=== PATIENT | male | born 1940 | race Caucasian/White ===

== ENCOUNTER 2016-12-27 13:31 | Emergency (ER) | payer OTHER ==
[~2016-12-27] VITALS: Ht 177.8 cm; Wt 99.0 kg
[2016-12-27 13:31] VITALS: Ht 177.8 cm; Wt 99.0 kg
[~2016-12-27 13:31] MED LIST: AMR2 PO; DTR5 PO; GLC500 PO; KETO200T PO; LISI-725 PO; LSX20 PO; MULT-506 PO; OMEG10007 PO; PRESERVISION PO; SIMV40TA2 PO
[2016-12-27] MEDS ORDERED: DEXAMETHASONE SOD INJ 4 MG/ML VIAL IV STA (13:41)
[2016-12-27] MEDS ORDERED: FAMOTIDINE 20MG/102 ML D5W IV STA (13:41)
[2016-12-27 13:54] LABS: BASO % 0.1 %; BASO ABS # 0.01 K/uL (0-0.2); COMPLETE YES; EOS % 1.2 %; HEMATOCRIT 48.8 % (42-52); IG% 0.5 %; LYMPH % 47.5 %; LYMPH ABS # 4.03 K/uL (1.2-3.4); MEAN CORPUSCULAR HEMOGLOBIN 28.6 pg (25-34); MEAN PLATELET VOLUME 10.9 fL (7.4-10.4); MONO % 3.3 %; NEUT % 47.4 %; PLATELET COUNT 228 K/uL (130-400); RED BLOOD COUNT 5.81 M/uL (4.7-6.1); WHITE BLOOD COUNT 8.49 K/uL (4.8-10.8)
[2016-12-27] MEDS ORDERED: MULT-190 PO (14:00)
[2016-12-27] MEDS ORDERED: METF-384 PO (14:00)
[2016-12-27] MEDS ORDERED: PRVC/40 PO (14:00)
[2016-12-27] MEDS ORDERED: GLIM4TAB2 PO (14:00)
[2016-12-27] MEDS ORDERED: DTR/5 PO (14:00)
[2016-12-27] MEDS ORDERED: FRS/40 PO (14:00)
[2016-12-27 14:08] LABS: BUN/CREATININE RATIO 16.7 (10-20); CALCIUM 9.4 mg/dl (8.5-10.1); CREATININE 1.5 mg/dl (0.60-1.40); POTASSIUM 3.4 mmol/L (3.5-5.1)
--- NOTE | 2016-12-27 14:12 | DIAGNOSTIC IMAGING REPORT ---
CHEST ONE VIEW PORTABLE CLINICAL HISTORY: Allergic reaction. Syncope. COMPARISON STUDY: Chest radiograph October 17, 2007. FINDINGS: Lung volumes are normal. There is no consolidation to suggest pneumonia and there is no evidence of pulmonary edema. Cardiomediastinal silhouette is stable. The appearance of the chest is unchanged. IMPRESSION: No acute cardiopulmonary findings. Electronically signed by: Shen Gustafson M.D. 12/27/2016 2:10 PM Dictated Date/Time: 12/27/2016 2:09 PM
[2016-12-27 15:24] LABS: URINE APPEARANCE CLEAR (CLEAR); URINE BILIRUBIN NEG (NEG); URINE COLOR YELLOW; URINE EPITHELIAL CELL AUTO >30 /lpf (0-5); URINE NITRITE NEG (NEG); URINE PH 5.5 (4.5-7.5); URINE SPECIFIC GRAVITY 1.014 (1.000-1.030); UROBILINOGEN NEG (NEG)
[2016-12-27 15:35] LABS: MANUAL MICROSCOPIC REQUIRED? NO; REVIEW REQ? YES
[2016-12-27 15:55] VITALS: O2SAT 95
[2016-12-27] MEDS ORDERED: PRED20TA PO (16:39)
--- NOTE | 2016-12-27 16:39 | EMERGENCY ROOM VISIT NOTE ---
History Report prepared by Richa: Raeann Watkins Under the Supervision of: Dr. Tonny Marin M.D. First contact with patient: 13:34 Stated Complaint: ALLERGIC REACTION/SYNCOPE History of Present Illness The patient is a 76 year old male who presents to the Emergency Room with complaints of a syncopal episode that occurred this afternoon. Per patient's family, the patient developed sweatiness and itchiness in his hands this afternoon. The itchiness spread through his entire body. He took 25 mg PO when his symptoms began. The patient has had similar allergic reactions in the past few years. He states that it typically happens after a large meal, although the patient and his family are unsure what exactly causes the reaction. The patient is prescribed an EpiPen for these reactions and has used it in the past without any relief, so he does not use it anymore. The patient reports that he ate 2 eggs, 2 pieces of toast, and a cup of tea prior to the onset of his symptoms. He has eaten these items without problems in the past. After the reactions, he typically gets diarrhea. Today, the patient was on his way to the bathroom to have a bowel movement and he passed out. Upon EMS arrival the patient was hypotensive. He was given another 25 mg Benadryl and 500 cc fluid en route. Currently, the patient is feeling much better. He is no longer itchy. He has never had allergy testing. Pt denies headache, fevers, chills, diaphoresis, visual changes, neck pain, chest pain, breathing difficulties, nausea, vomiting , abdominal pain, back pain, melena, hematochezia, urinary symptoms, numbness, weakness, lymphadenopathy, or other complaints. Source of History: patient Onset: this morning Position: other (global) Quality: other (syncope) Timing: other (episode) Note: Other symptoms: itchiness Review of Systems See HPI for pertinent positives and negatives. A total of ten systems were reviewed and were otherwise negative. Past Medical & Surgical Medical Problems: (1) HTN (hypertension) (2) Prostate cancer Family History No pertinent family history stated. Social History Marital Status: Housing Status: lives with significant other Occupation Status: retired Current/Historical Medications Scheduled Fish Oil ([place]-3), 1 CAP PO DAILY Furosemide (Lasix), 40 MG PO DAILY Glimepiride (Glimepiride), 1 TAB PO DAILY Lisinopril (Zestril), 20 MG PO DAILY Metformin Hcl (Glucophage), 1,000 MG PO BID Multivitamin (Multivitamin), 1 TAB PO DAILY Ocuvite Preservision (Ocuvite Preservision), 1 TAB PO DAILY Oxybutynin Chloride (Ditropan), 5 MG PO Q2D Pravastatin Sod (Pravastatin Sodium), 1 TAB PO DAILY Prednisone (Prednisone), 20 MG PO DAILY Allergies Coded Allergies: Sulfa Drugs (Verified Allergy, Severe, HIVES, 12/27/16) Povidone Iodine (Unverified Allergy, Mild, burning sensation, 12/27/16) Physical Exam Vital Signs Date Time Temp Pulse Resp B/P Pulse Ox O2 Delivery O2 Flow Rate FiO2 12/27/16 17:45 36.5 82 18 135/67 96 12/27/16 17:36 82 18 135/67 96 Room Air 12/27/16 17:31 67 22 118/58 96 Room Air 12/27/16 16:30 95 111/56 95 Room Air 12/27/16 16:06 65 19 93 12/27/16 16:01 73 19 92 Room Air 12/27/16 16:00 129/61 12/27/16 15:55 95 Room Air 12/27/16 15:31 75 19 93 12/27/16 15:30 113/60 12/27/16 15:01 80 17 95 12/27/16 15:00 109/54 12/27/16 14:45 36.5 83 18 115/52 95 Room Air 12/27/16 14:31 85 19 95 12/27/16 14:30 115/52 12/27/16 14:01 88 27 97 12/27/16 14:00 90 20 127/79 100 Room Air 12/27/16 14:00 127/79 12/27/16 13:55 88 12/27/16 13:36 119/58 12/27/16 13:31 85 22 119/58 94 Room Air 12/27/16 13:31 94 Room Air 12/27/16 13:31 94 Room Air Physical Exam GENERAL: Awake, alert, tired-appearing, in no distress HENT: Normocephalic, atraumatic. Oropharynx unremarkable. EYES: Normal conjunctiva. Sclera non-icteric. NECK: Supple. No nuchal rigidity. FROM. No JVD. RESPIRATORY: Clear to auscultation. CARDIAC: Regular rate, normal rhythm. Extremities warm and well perfused. Pulses equal. ABDOMEN: Soft, non-distended. No tenderness to palpation. No rebound or guarding. No masses. RECTAL: Deferred. MUSCULOSKELETAL: Chest examination reveals no tenderness. The back is symmetrical on inspection without obvious abnormality. There is no CVA tenderness to palpation. No joint edema. LOWER EXTREMITIES: Calves are equal size bilaterally and non-tender. No edema. No discoloration. NEURO: Normal sensorium. No sensory or motor deficits noted. SKIN: No jaundice noted. Diffuse erythema. Mild swelling to the palms. Medical Decision & Procedures ER Provider Diagnostic Interpretation: Radiology results as stated below per my review and radiologist interpretation CHEST ONE VIEW PORTABLE CLINICAL HISTORY: Allergic reaction. Syncope. COMPARISON STUDY: Chest radiograph October 17, 2007. FINDINGS: Lung volumes are normal. There is no consolidation to suggest pneumonia and there is no evidence of pulmonary edema. Cardiomediastinal silhouette is stable. The appearance of the chest is unchanged. IMPRESSION: No acute cardiopulmonary findings. Electronically signed by: Shen Gustafson M.D. 12/27/2016 2:10 PM Dictated Date/Time: 12/27/2016 2:09 PM Laboratory Results 12/27/16 13:00 Red Blood Count 5.81, Mean Corpuscular Volume 84.0, Mean Corpuscular Hemoglobin 28.6, Mean Corpuscular Hemoglobin Concent 34.0, Mean Platelet Volume 10.9, Neutrophils (%) (Auto) 47.4, Lymphocytes (%) (Auto) 47.5, Monocytes (%) (Auto) 3.3, Eosinophils (%) (Auto) 1.2, Basophils (%) (Auto) 0.1, Neutrophils # (Auto) 4.03, Lymphocytes # (Auto) 4.03, Monocytes # (Auto) 0.28, Eosinophils # (Auto) 0.10, Basophils # (Auto) 0.01 12/27/16 13:00 Test 12/27/16 13:00 12/27/16 15:10 White Blood Count 8.49 K/uL (4.8-10.8) Red Blood Count 5.81 M/uL (4.7-6.1) Hemoglobin 16.6 g/dL (14.0-18.0) Hematocrit 48.8 % (42-52) Mean Corpuscular Volume 84.0 fL (80-100) Mean Corpuscular Hemoglobin 28.6 pg (25-34) Mean Corpuscular Hemoglobin Concent 34.0 g/dl (32-36) Platelet Count 228 K/uL (130-400) Mean Platelet Volume 10.9 fL (7.4-10.4) Neutrophils (%) (Auto) 47.4 % Lymphocytes (%) (Auto) 47.5 % Monocytes (%) (Auto) 3.3 % Eosinophils (%) (Auto) 1.2 % Basophils (%) (Auto) 0.1 % Neutrophils # (Auto) 4.03 K/uL (1.4-6.5) Lymphocytes # (Auto) 4.03 K/uL (1.2-3.4) Monocytes # (Auto) 0.28 K/uL (0.11-0.59) Eosinophils # (Auto) 0.10 K/uL (0-0.5) Basophils # (Auto) 0.01 K/uL (0-0.2) RDW Standard Deviation 43.6 fL (36.4-46.3) RDW Coefficient of Variation 14.3 % (11.5-14.5) Immature Granulocyte % (Auto) 0.5 % Immature Granulocyte # (Auto) 0.04 K/uL (0.00-0.02) Anion Gap 16.0 mmol/L (3-11) Est Creatinine Clear Calc Drug Dose 49.4 ml/min Estimated GFR () 51.7 Estimated GFR (Non- 44.6 BUN/Creatinine Ratio 16.7 (10-20) Calcium Level 9.4 mg/dl (8.5-10.1) Urine Color YELLOW Urine Appearance CLEAR (CLEAR) Urine pH 5.5 (4.5-7.5) Urine Specific [place] 1.014 (1.000-1.030) Urine Protein 1+ (NEG) Urine Glucose (UA) NEG (NEG) Urine Ketones 1+ (NEG) Urine Occult Blood NEG (NEG) Urine Nitrite NEG (NEG) Urine Bilirubin NEG (NEG) Urine Urobilinogen NEG (NEG) Urine Leukocyte Esterase NEG (NEG) Urine WBC (Auto) 1-5 /hpf (0-5) Urine RBC (Auto) 0-4 /hpf (0-4) Urine Hyaline Casts (Auto) 1-5 /lpf (0-5) Urine Epithelial Cells (Auto) >30 /lpf (0-5) Urine Bacteria (Auto) 1+ (NEG) Urine Pathogenic Casts /lpf (0) Laboratory results reviewed by me Medications Administered Medications (Trade) Dose Ordered Sig/Darrian Route Start Time Stop Time Status Last Admin Dose Admin Dexamethasone Sodium Phosphate (Decadron Inj) 10 mg NOW STAT IV 12/27/16 13:41 12/27/16 13:42 DC 12/27/16 13:55 10 MG Famotidine (Pepcid 20mg/100 ml) 20 mg ONE STAT IV 12/27/16 13:41 12/27/16 13:42 DC 12/27/16 13:55 20 MG ECG Indication: syncope Rate (beats per minute): 93 Rhythm: normal sinus Findings: left axis deviation, prolonged QT, other (LVH with repol) ED Course 1335: The patient was evaluated in room A9. A complete history and physical exam was performed. 1341: Ordered Famotidine 20 mg IV, Decadron Inj 10 mg IV. 1535: I reassessed the patient. He feels completely better. 1710: I reassessed the patient. He will have an ambulatory trial. 1740: I reevaluated the patient. He did well on his road test and his blood pressure was good. Discussed results and discharge instructions: He verbalized understanding and agreement. The patient is ready for discharge. Medical Decision Prior records/ancillary studies reviewed. Triage Nursing notes reviewed and agree them. Additional history obtained from family. The patient's history was concerning for possible allergic reaction. Differential diagnosis: Etiologies such as allergic reaction, anaphylaxis, urticaria, Perez-Fracisco syndrome, toxic epidermal necrolysis, erythema multiforme, cellulitis, as well as others were entertained. Physical examination: As above. ER treatment provided: Continuous cardiac monitoring Pepcid 20 mg IV Decadron 10 mg IV On reassessment the patient felt better. Diagnostic interpretation by me: The labs revealed an unremarkable CBC and chemistry panel. Urinalysis negative. Imaging studies: Negative as above. It appears the patient had an allergic reaction. The etiology is unknown. He will need follow-up allergy testing. The above treatment did well to reverse the symptoms. After prolonged monitoring and frequent reassessments the patient did very well and symptoms resolved. By the evaluation outlined above emergent etiologies such as airway compromise, Perez-Fracisco syndrome, toxic epidermal necrolysis, erythema multiforme, cellulitis, as well as others were deemed relatively unlikely. The patient and family were informed about the findings as listed above. All questions were answered and they were pleased with the treatment. Return instructions were outlined and the patient was discharged in stable condition. Outpatient prescription management: EpiPen prednisone Referral: The patient was referred back to his primary care physician for follow-up in 2- 3 days for a recheck of the current condition. Patient was also referred to allergy. The chart was completed utilizing [employer] Speech voice recognition software. Grammatical errors, random word insertions, pronoun errors, and incomplete sentences are an occasional side effect of this system due to software limitations, ambient noise, and hardware issues. Any formal questions or concerns about the content, text, or information contained within the body of this dictation should be directly addressed to the physician for clarification. Impression Primary Impression: Anaphylaxis Scribe Attestation The scribe's documentation has been prepared under my direction and personally reviewed by me in its entirety. I confirm that the note above accurately reflects all work, treatment, procedures, and medical decision making performed by me. Departure Information Dispostion Home / Self-Care Prescriptions Prednisone (Prednisone) 20 Mg Tab 20 MG PO DAILY for 2 Days, #2 TAB Prov: Tonny Marin MD 12/27/16 Referrals Ruben Felder D.O. (PCP) Tonny Dan M.D. Additional Instructions ALLERGIC REACTION INSTRUCTIONS: DO NOT drive, drink alcohol, operate machinery, or perform dangerous activities today. You were given medications in the ER that can affect your ability to safely function or operate a vehicle. Epi-Pen: Use one injection as instructed for severe allergic reactions associated with shortness of breath, difficulty breathing, or throat or tongue swelling. If you use this injection call 911 or proceed immediately to the nearest Emergency Room. Prednisone 50mg: Once daily until the prescription is finished. It is best to take this earlier in the day as some patients note occasional difficulty falling asleep when taken in the late evening. Diphenhydramine(Benadryl) 25mg: use 25 to 50 mg every six hours for swelling, itching, or hives. This medication is sedating and will cause drowsiness. Avoid alcohol, operating machinery or dangerous equipment, working on ladders or roofs, DRIVING, or situations where being under the influence may be dangerous. Zantac 75: Take two pills twice a day along with Benadryl as needed for swelling , itching, or hives. Most people know this for its affect on the stomach, but it also acts similar to, but less potent than Benadryl for allergic reactions. Both the Benadryl and the Zantac are available [id number]. Continue current medications. Return to the emergency department for worsening of your rash, swelling of your face, lips, tongue, or throat, difficulty breathing, vomiting, or as needed. Follow-up with your primary care physician in 2 to 3 days for a recheck of your current condition. Follow-up with allergy at [facility] as discussed. The numbers listed below under Dr. Dan. Problem Qualifiers Primary Impression: Anaphylaxis Encounter type: initial encounter Qualified Codes: T78.2XXA - Anaphylactic shock, unspecified, initial encounter
[2016-12-27 17:45] VITALS: BP 135/67; PULSE 82; TEMP 36.5; O2SAT 96
== END 2016-12-27 18:03 | disposition home or self-care (01) ==
LOC: EDBD 13:31 → C.EDA 13:32
DX: T78.2XXA Anaphylactic shock, unspecified, initial encounter (principal); X58.XXXA Exposure to other specified factors, initial encounter; I10 Essential (primary) hypertension; Z85.46 Personal history of malignant neoplasm of prostate; R21 Rash and other nonspecific skin eruption; Z79.899 Other long term (current) drug therapy

== ENCOUNTER → 2017-02-15 | Outpatient (CLI) | payer OTHER ==
[~2017-02-15] MED LIST changes: -AMR2 PO; +DTR/5 PO; -DTR5 PO; +FRS/40 PO; -GLC500 PO; +GLIM4TAB2 PO; -KETO200T PO; -LSX20 PO; +METF-384 PO; +MULT-190 PO; -PRESERVISION PO; +PRVC/40 PO; -SIMV40TA2 PO
[2017-02-15 13:12] LABS: BASO % 0.6 %; BASO ABS # 0.04 K/uL (0-0.2); COMPLETE YES; EOS % 2.6 %; HEMATOCRIT 44.7 % (42-52); IG% 0.4 %; LYMPH % 20.4 %; MEAN CELL VOLUME 85.5 fL (80-100); MEAN CORPUSCULAR HEMOGLOBIN 27.5 pg (25-34); MEAN CORPUSCULAR HGB CONC 32.2 g/dl (32-36); MEAN PLATELET VOLUME 10.2 fL (7.4-10.4); MONO % 8.4 %; NEUT % 67.6 %; PLATELET COUNT 190 K/uL (130-400); RED BLOOD COUNT 5.23 M/uL (4.7-6.1); WHITE BLOOD COUNT 6.87 K/uL (4.8-10.8)
[2017-02-15 14:24] LABS: LYME DISEASE AB IGG NEG (NEG)
[2017-02-15 14:30] LABS: LYME DISEASE AB IGM EQUIVOCAL (NEG)
[2017-02-19 04:27] LABS: ANTI-CENTROMERE AB <1.0 NEG AI (<1.0 NEG); ANTI-SS-A <1.0 NEG AI (<1.0 NEG); ANTI-SS-B <1.0 NEG AI (<1.0 NEG); BEEF CLASS 0; BEEF IGE <0.10 KU/L; C1 ESTERASE INHIB FUNC 88 % (>=68); C1 ESTERASE INHIB TC298 29 mg/dL (21-39); CHOCOLATE CLASS 0; CHOCOLATE IGE <0.10 KU/L; CLAM CLASS 0; CLAM IGE <0.10 KU/L; CORN CLASS 0; CORN IGE <0.10 KU/L; CRAB CLASS 0; CRAB IGE <0.10 KU/L; DNA ds CRITHIDIA NEGATIVE (NEGATIVE); EGG MIX CLASS 0; EGG MIX IGE <0.10 KU/L; LOBSTER CLASS 0; LOBSTER IGE <0.10 KU/L; MICROSOMAL AB <1 IU/ML (<9); PEANUT IGE <0.10 KU/L; PORK CLASS 0; PORK IGE <0.10 KU/L; SHRIMP CLASS 0; SOY CLASS 0; SOY IGE <0.10 KU/L; Sm Antibody <1.0 NEG AI (<1.0 NEG); WHEAT CLASS 0; WHEAT IGE <0.10 KU/L
[2017-02-21 09:55] LABS: 18KDIGG BAND NONREACTIVE (NONREACTIVE); 23KDIGG BAND NONREACTIVE (NONREACTIVE); 23KDIGM BAND NONREACTIVE (NONREACTIVE); 28KDIGG BAND NONREACTIVE (NONREACTIVE); 30KDIGG BAND REACTIVE (NONREACTIVE); 39KDIGG BAND NONREACTIVE (NONREACTIVE); 39KDIGM BAND NONREACTIVE (NONREACTIVE); 41KDIGG BAND REACTIVE (NONREACTIVE); 41KDIGM BAND NONREACTIVE (NONREACTIVE); 45KDIGG BAND REACTIVE (NONREACTIVE); 58KDIGG BAND NONREACTIVE (NONREACTIVE); 66KDIGG BAND NONREACTIVE (NONREACTIVE); 93KDIGG BAND NONREACTIVE (NONREACTIVE)
== END | disposition home or self-care (01) ==
LOC: C.LAB1850 11:36
PROVIDERS: ATTEND Internal Medicine Pulmonary Disease
DX: T78.2XXA Anaphylactic shock, unspecified, initial encounter (principal); X58.XXXA Exposure to other specified factors, initial encounter

== ENCOUNTER 2019-12-03 15:50 | Inpatient (IN) ==
--- NOTE | 2019-12-03 16:39 | Emergency Department Note ---
ED Provider Note NAME: MICHELLE HERNANDEZ AGE: 78 SEX: M ARRIVES VIA: Walk-In INFORMANT: Patient, ED PROVIDER(S): Michelle Marin MD CHIEF COMPLAINT: Abnormal labs IMPRESSION: Pancytopenia Shortness of breath PLAN: Disposition: Admitted Condition: [Good] MEDICAL DECISION MAKING: The patient is a 78-year-old male that presented with shortness of breath. Outpatient labs were concerning for anemia. His physical examination revealed significant petechiae. He had a heme-negative rectal examination. The patient's blood work here reveals pancytopenia with significant thrombocytopenia. This would explain his petechiae and most likely his dyspnea on exertion. I discussed the case with hematology and internal medicine. The patient will be admitted for a work-up and further management. Triage Nursing notes reviewed and agree them. Additional history obtained from his spouse. Vital Signs: reviewed and remarkable for mild tachycardia. Differential diagnosis: Infection, dehydration, metabolic abnormality, hypo/hyperglycemia, electrolyte disturbance, anemia, hypoxia, cardiac sources, intracerebral event, toxicologic, neurologic, as well as other pathologies. ER treatment provided: IV insulin Diagnostics interpreted by me: ECG: Rate: 99 Rhythm: Normal sinus rhythm [place]: Normal QRS: Normal ST segements: No ST elevation or depression. Other: No PACs or PVCs Cardiac monitoring ordered: The patient was placed on continuous cardiac monitoring and observed. It revealed a normal sinus rhythm at 98 bpm without ectopy or evidence of dysrhythmia. Laboratory studies: [See below] a significant pancytopenia with a platelet count of 3. Hemoglobin 8.4. Chemistry panel unremarkable. Imaging studies: Imaging studies: Chest x-ray. Findings: A chest x-ray was performed and revealed no pneumothorax, effusion, infiltrate, pulmonary edema, free air under the diaphragm, or wide mediastinum. Impression: No acute disease. Consultation(s): Consultation made with Dr. Vital of hematology. He asked to hold on any platelet or steroid administration. He evaluated the patient in the ER. He discussed his recommendations with internal medicine. A consultation was placed with of internal medicine. The case was discussed and the patient was evaluated in the ER for further management. HPI: The patient is a 78 year old male who presents to the Emergency Room with complaints of SOB. This started a month ago and is worsening. The patient also notes the following associated symptoms, weakness. The patient has found no relieving factors. Current pain is rated as 0/10. Pt has had diarrhea, red in color. Pt denies LOC, headache, fevers, chills, diaphoresis, visual changes, neck pain, chest pain, nausea, vomiting, abdominal pain, back pain, melena, urinary symptoms, numbness, lymphadenopathy, rash, or other complaints. ROS: See above HPI for pertinent positives & negatives. A total of 10 systems reviewed and were otherwise negative. PAST MEDICAL HISTORY:anaphylaxis, melanoma PAST SURGICAL HISTORY:Prostate surgery FAMILY HISTORY:See Below SOCIAL HISTORY: HOME MEDICATIONS:Reviewed ALLERGIES:Sulfa, Iodine VITALS:See Below PHYSICAL EXAMINATION: GENERAL: Awake, alert, well-appearing, in no distress HENT: Normocephalic, atraumatic. Oropharynx unremarkable. EYES: Normal conjunctiva. Sclera non-icteric. NECK: Inspection normal. Non-tender. Supple. No nuchal rigidity. FROM. No masses. RESPIRATORY: Clear to auscultation. No wheezes. No rales. Normal respiratory effort. CARDIAC: Normal rate. Normal rhythm. No murmurs. No rubs. Extremities warm and well perfused. Pulses equal. No JVD. GI: Soft, non-distended. No tenderness to palpation. No rebound or guarding. No masses. RECTAL: Brown stool. Heme neg. MUSCULOSKELETAL: Atraumatic. Chest examination reveals no tenderness. The back is symmetrical on inspection without obvious abnormality. There is no CVA tenderness to palpation. No joint edema. LOWER EXTREMITIES: Calves are equal size bilaterally and non-tender. No edema. No discoloration. NEURO: Normal sensorium. No sensory or motor deficits noted. SKIN: Scattered petechiae. No purpura or jaundice noted. ED COURSE: Procedures: [none] [Critical Care:] [None] Michelle Marin MD Impression & Plan Pancytopenia, SOB (shortness of breath) Past Med/Surg History Social History Preferred Language: Czech Communication Ability: Effective Beliefs That Will Affect Care: None marital status: Current Living Situation: Spouse current occupational status: retired Other Information That Helps Us Care for You: No Feels Safe at Home: Yes Safety Concerns: Feels Safe At This Time Smoking Status: Former smoker Tobacco Type: smokeless tobacco ; Do You Dip or Chew Tobacco: Yes ; Second Hand Exposure: No ; Hx Alcohol Use: No Hx Substance Use: No Results & Data Vital Signs Vital Signs - 24 hr 12/03/19 15:54 12/03/19 16:56 12/03/19 18:48 Temperature 36.9 C Temperature Source Oral Pulse Rate 108 H Pulse Rate [Apical] 92 H 89 Pulse Rate from SpO2 Sensor Respiratory Rate 18 18 19 Respiratory Effort / Characteristics Non-Labored Spontaneous Non-Labored Respiratory Depth Normal Normal Normal Respiratory Pattern Regular Blood Pressure 137/62 Blood Pressure [Right Arm] 109/61 108/70 Blood Pressure Mean 87 Blood Pressure Mean [Right Arm] 77 82 Blood Pressure Position Sitting Pulse Oximetry 97 95 100 Oxygen Delivery Method Room Air Room Air Room Air Sepsis Recent Fever Within 48 Hours No Sepsis New/Unexplained Change in Mental Status No Sepsis Action Taken by Nursing No Action Required 12/03/19 19:00 Temperature Temperature Source Pulse Rate 92 H Pulse Rate [Apical] Pulse Rate from SpO2 Sensor 92 H Respiratory Rate 21 Respiratory Effort / Characteristics Respiratory Depth Respiratory Pattern Blood Pressure 119/50 L Blood Pressure [Right Arm] Blood Pressure Mean 67 Blood Pressure Mean [Right Arm] Blood Pressure Position Pulse Oximetry 100 Oxygen Delivery Method Room Air Sepsis Recent Fever Within 48 Hours Sepsis New/Unexplained Change in Mental Status Sepsis Action Taken by Nursing Laboratory Data Result diagrams: 12/03/19 16:38 12/03/19 16:38 Lab Results 12/03/19 12/03/19 12/03/19 Range/Units 16:38 16:38 16:38 WBC 3.12 L (4.8-10.8) K/uL RBC 2.77 L (4.7-6.1) M/uL Hgb 8.4 L (14.0-18.0) g/dL Hct 24.2 L (42-52) % MCV 87.4 (80-100) fL MCH 30.3 (25-34) pg MCHC 34.7 (32-36) g/dL RDW Std Deviation 44.2 (36.4-46.3) fL RDW Coeff of Elvira 13.8 (11.5-14.5) % Plt Count 3 L* (130-400) K/uL Immature Gran % (Auto) 0.6 % Neut % (Auto) 53.2 % Lymph % (Auto) 27.6 % [place] % (Auto) 13.8 % Eos % (Auto) 4.5 % Baso % (Auto) 0.3 % Immature Gran # (Auto) 0.02 (0.00-0.02) K/uL Neut # (Auto) 1.66 (1.4-6.5) K/uL Lymph # (Auto) 0.86 L (1.2-3.4) K/uL [place] # (Auto) 0.43 (0.11-0.59) K/uL Eos # (Auto) 0.14 (0-0.5) K/uL Baso # (Auto) 0.01 (0-0.2) K/uL Platelet Estimate SIGNIFIC DECREASED (Normal) Ovalocytes 1+ PT 13.4 H (9.0-12.0) Seconds INR 1.3 H (0.9-1.1) APTT 24.1 (21.0-31.0) Seconds PTT Ratio 0.9 Sodium 133 L (136-145) mmol/L Potassium 4.3 (3.5-5.1) mmol/L Chloride 102 (98-107) mmol/L Carbon Dioxide 24 (21-32) mmol/L Anion Gap 7.0 (3-11) BUN 26 H (7-18) mg/dl Creatinine 1.46 H (0.6-1.4) mg/dl Est Cr Clr Drug Dosing Not Reportable Est GFR ( Amer) 52.6 Est GFR (Non-Af Amer) 45.4 BUN/Creatinine Ratio 17.9 (10-20) Glucose 348 H* (70-99) mg/dl Calcium 9.0 (8.5-10.1) mg/dl Total Bilirubin 1.1 H (0.2-1) mg/dl AST 12 L (15-37) U/L ALT 14 (12-78) U/L Alkaline Phosphatase 102 (45-117) U/L Troponin I 0.031 (0-0.045) ng/ml Total Protein 6.2 L (6.4-8.2) gm/dl Albumin 3.2 L (3.4-5.0) gm/dl Globulin 3.0 (2.5-4.0) gm/dl Albumin/Globulin Ratio 1.1 (0.9-2) Beta-Hydroxybutyric Acd 4.64 H (0.2-2.81) mg/dl Blood Type Antibody Screen 12/03/19 Range/Units 16:52 WBC (4.8-10.8) K/uL RBC (4.7-6.1) M/uL Hgb (14.0-18.0) g/dL Hct (42-52) % MCV (80-100) fL MCH (25-34) pg MCHC (32-36) g/dL RDW Std Deviation (36.4-46.3) fL RDW Coeff of Elvira (11.5-14.5) % Plt Count (130-400) K/uL Immature Gran % (Auto) % Neut % (Auto) % Lymph % (Auto) % [place] % (Auto) % Eos % (Auto) % Baso % (Auto) % Immature Gran # (Auto) (0.00-0.02) K/uL Neut # (Auto) (1.4-6.5) K/uL Lymph # (Auto) (1.2-3.4) K/uL [place] # (Auto) (0.11-0.59) K/uL Eos # (Auto) (0-0.5) K/uL Baso # (Auto) (0-0.2) K/uL Platelet Estimate (Normal) Ovalocytes PT (9.0-12.0) Seconds INR (0.9-1.1) APTT (21.0-31.0) Seconds PTT Ratio Sodium (136-145) mmol/L Potassium (3.5-5.1) mmol/L Chloride (98-107) mmol/L Carbon Dioxide (21-32) mmol/L Anion Gap (3-11) BUN (7-18) mg/dl Creatinine (0.6-1.4) mg/dl Est Cr Clr Drug Dosing Est GFR ( Amer) Est GFR (Non-Af Amer) BUN/Creatinine Ratio (10-20) Glucose (70-99) mg/dl Calcium (8.5-10.1) mg/dl Total Bilirubin (0.2-1) mg/dl AST (15-37) U/L ALT (12-78) U/L Alkaline Phosphatase (45-117) U/L Troponin I (0-0.045) ng/ml Total Protein (6.4-8.2) gm/dl Albumin (3.4-5.0) gm/dl Globulin (2.5-4.0) gm/dl Albumin/Globulin Ratio (0.9-2) Beta-Hydroxybutyric Acd (0.2-2.81) mg/dl Blood Type O Positive Antibody Screen NEGATIVE Administered Medications Amlodipine Besylate (Norvasc) 5 mg PO QPM MARCO Stop: 01/02/20 21:00 Last Admin: 12/03/19 21:54 Dose: 5 mg Documented by: [id number] Dexamethasone (Decadron) 40 mg PO DAILY MARCO Stop: 12/06/19 09:01 Last Admin: 12/03/19 21:52 Dose: 40 mg Documented by: [id number] Insulin Aspart (Novolog Flexpen) 0 units SC ACHS MARCO Stop: 01/02/20 21:00 Last Admin: 12/03/19 21:50 Dose: 1 units Documented by: [id number] Cosigned by: [id number] Montelukast Sodium (Singulair) 10 mg PO QPM MARCO Stop: 01/02/20 21:00 Last Admin: 12/03/19 21:54 Dose: 10 mg Documented by: [id number] Multivitamins/Minerals (Multivitamin W/ Minerals Tab) 1 tab PO BID MARCO Stop: 01/02/20 21:00 Last Admin: 12/03/19 21:53 Dose: 1 tab Documented by: [id number] Potassium Chloride (Klor-Con M20) 20 meq PO QPM MARCO Stop: 01/02/20 21:00 Last Admin: 12/03/19 21:53 Dose: 20 meq Documented by: [id number] Discontinued Medications Insulin Glargine (Lantus Solostar Pen) 26 units SC TODAY@2200 MARCO Stop: 12/03/19 22:01 Last Admin: 12/03/19 22:36 Dose: 26 units Documented by: [id number] Cosigned by: [id number] Insulin Human Regular (Novolin R U-100 Per Unit) 10 units IV NOW STA Stop: 12/03/19 18:03 Last Admin: 12/03/19 18:12 Dose: 10 units Documented by: [id number] Cosigned by: [id number] Miscellaneous (Patient's Height And/Or Weight Needed) 1 ea N/A Q1H MARCO Stop: 04/16/20 21:14 Last Admin: 12/03/19 22:38 Dose: Not Given Documented by: [id number] Discharge Plan Visit Data *Final* Discharge Date/Time: 12/03/19 20:19 Chief Complaint: Abnormal Labs/Diagnostic Testing Stated Complaint: BLOOD COUNT WAS ON OFF THE CHARTS ED Provider: Michelle Marin Discharge Problem: Pancytopenia, SOB (shortness of breath) Patient Disposition: Admitted As Inpatient Discharge Instructions Interventions: ED Discharge Assessment Last Done: 12/03/19 20:19
--- NOTE | 2019-12-03 16:53 | XRay Report ---
XR chest 1V portable HISTORY: Shortness of breath. COMPARISON: Chest 12/27/2016. FINDINGS: There are low lung volumes. The heart remains mildly enlarged. No pleural effusions. No pne umothorax. No focal lung consolidations to suggest pneumonia. No evidence for pulmonary edema. IMPRESSION: No significant change compared to the prior study. No acute process. ACT 112: Negative or not required by law. Electronically signed by: Orlando Naranjo M.D. 12/03/2019 4:52 PM
[2019-12-03 16:56] LABS: INR 1.3 (0.9-1.1); Partial Thromboplastin Ratio 0.9; Partial Thromboplastin Time 24.1 Seconds (21.0-31.0); Prothrombin Time 13.4 Seconds (9.0-12.0)
[2019-12-03 17:16] LABS: Basophils # (auto) 0.01 K/uL (0-0.2); Basophils % (auto) 0.3 %; Eosinophils # (auto) 0.14 K/uL (0-0.5); Eosinophils % (auto) 4.5 %; Hematocrit (blood only) 24.2 % (42-52); Hemoglobin 8.4 g/dL (14.0-18.0); Immature Granulocytes # (auto) 0.02 K/uL (0.00-0.02); Immature Granulocytes % (auto) 0.6 %; Lymphocytes # (auto) 0.86 K/uL (1.2-3.4); Lymphocytes % (auto) 27.6 %; Mean Corpuscular Hemoglobin 30.3 pg (25-34); Mean Corpuscular Hgb Conc 34.7 g/dL (32-36); Mean Corpuscular Volume 87.4 fL (80-100); Monocytes # (auto) 0.43 K/uL (0.11-0.59); Monocytes % (auto) 13.8 %; Neutrophils # (auto) 1.66 K/uL (1.4-6.5); Neutrophils % (auto) 53.2 %; Ovalocytes 1+; Platelet Count 3 K/uL (130-400); Platelet Estimate SIGNIFIC DECREASED (Normal); RDW Coefficient of Variation 13.8 % (11.5-14.5); RDW Standard Deviation 44.2 fL (36.4-46.3); Red Blood Count 2.77 M/uL (4.7-6.1); White Blood Count 3.12 K/uL (4.8-10.8)
[2019-12-03 17:19] LABS: Alanine Aminotransferase 14 U/L (12-78); Albumin Globulin Ratio 1.1 (0.9-2); Albumin Level 3.2 gm/dl (3.4-5.0); Alkaline Phosphatase 102 U/L (45-117); Aspartate Aminotransferase 12 U/L (15-37); BUN Creatinine Ratio 17.9 (10-20); Bilirubin,Total 1.1 mg/dl (0.2-1); Blood Urea Nitrogen 26 mg/dl (7-18); Carbon Dioxide 24 mmol/L (21-32); Chloride 102 mmol/L (98-107); Est GFR (African American) 52.6; Est GFR (Non-African American) 45.4; Glucose 348 mg/dl (70-99); Potassium 4.3 mmol/L (3.5-5.1); Sodium 133 mmol/L (136-145); Total Protein 6.2 gm/dl (6.4-8.2); Troponin I 0.031 ng/ml (0-0.045)
[2019-12-03 17:34] LABS: Beta-Hydroxybutyrate 4.64 mg/dl (0.2-2.81)
[2019-12-03] MEDS ORDERED: NovoLIN-R INSULIN PER UNIT CHARGE IV STA (18:02)
--- NOTE | 2019-12-03 18:57 | History & Physical Report ---
Date of Service December 03, 2019 Assessment & Plan (1) Pancytopenia: Patient has new onset pancytopenia with significant thrombocytopenia. I did discuss with the ER doctor who is in turn discussed with hematology. That the patient will be evaluated by junior estimator clarence with consideration towards possible steroid dosing versus a platelet transfusion. For now we will admit the patient and await hematology evaluation. Patient does not have any active bleeding and will need to monitor closely for this. I suspect patient will need a bone marrow biopsy in the near future if his pancytopenia does not resolve. (2) Diabetes mellitus: Continue metformin and glimepiride 4 mg as ordered as an outpatient. Patient is also on 26 units of Lantus in the morning which we will continue. ADA diet with sliding scale insulin. (3) HTN (hypertension): Patient is on amlodipine 5 mg daily, blood pressure is low normal. Can continue to monitor. History of Present Illness Primary Care Provider: Ruben Felder This is a 70-year-old male with past medical history of idiopathic anaphylaxis, diabetes mellitus, hypertension, and macular degeneration who presents today with abnormal lab work. Patient is coming by his and is very good historian. Patient tells me that over the past 2 months he is noticed that he has been getting slowly weaker. He tells me his generalized weakness well focality. He is sleeping through much of the day and feels that he can sleep 24 hours if given the chance. His appetite has been getting more poor and he eats little now although he can tolerate without nausea or vomiting. He is lost 10-12 pounds since beginning of the year. His bowel movements are mostly normal although he will occasionally have a little bright red blood which is painless. More recently has noticed some mild dyspnea on exertion which is been slowly worsening. He has had no fevers or chills, changes in his urine, or chest pain. Earlier today the patient went to his primary care physician because he felt that he was getting worse. Patient had routine lab work drawn and was called s licha hours later and told to present to the emergency room. Glucose is CBC was grossly normal with a platelet count of 3. Patient is now in the emergency room, labs were confirmed and he is now being admitted for pancytopenia. At this time, patient has no acute complaints outside of his general fatigue as described above. He is in no acute cardiopulmonary distress. He has no active bleeding. Allergies Allergy/AdvReac Type Severity Reaction Status Date / Time Sulfa (Sulfonamide Allergy Severe HIVES Verified 12/03/19 17:21 Antibiotics) povidone-iodine Allergy Mild burning Verified 12/03/19 17:21 sensation Home Medications Home Medications Medication Instructions Recorded Confirmed Type amlodipine 5 mg tablet 5 mg PO QPM 06/21/19 12/03/19 History cetirizine 10 mg tablet 5 mg PO DAILY PRN 06/21/19 12/03/19 History furosemide 40 mg tablet 40 mg PO DAILY PRN 06/21/19 12/03/19 History glimepiride 4 mg tablet 4 mg PO QAM 06/21/19 12/03/19 History metformin 1,000 mg tablet 1,000 mg PO BID 06/21/19 12/03/19 History multivitamin 1 tab PO DAILY 06/21/19 12/03/19 History oxybutynin chloride 5 mg tablet 5 mg PO QAM 06/21/19 12/03/19 History vitamin B complex 1 tab PO QAM 06/21/19 12/03/19 History vitamins A,C,K-cbhe-mmzeyd 14,320 1 cap PO BID 06/21/19 12/03/19 History unit-226 mg-200 unit capsule montelukast 10 mg tablet 10 mg PO QPM #90 tab 11/12/19 12/03/19 Rx fluconazole 150 mg PO MONTHLY 12/03/19 12/03/19 History insulin glargine [Lantus U-100 26 unit SUBCUT QAM 12/03/19 12/03/19 History Insulin] potassium chloride 20 meq PO QPM 12/03/19 12/03/19 History pravastatin 40 mg PO QAM 12/03/19 12/03/19 History Past Med/Surg History Social History Preferred Language: Thai marital status: Current Living Situation: Spouse current occupational status: retired Feels Safe at Home: Yes Smoking Status: Former smoker Review of Systems Constitutional: + fatigue, + malaise, + weakness, + anorexia and + weight loss; no fever, no chills and no sweats Eyes: as per Subjective / HPI Respiratory: no cough, no chest congestion, no dyspnea and no dyspnea on exertion Cardiovascular: + dyspnea on exertion; no chest pain, no orthopnea, no palpitations, no lightheadedness and no edema Gastrointestinal: + change in stools; no abdominal pain, no nausea, no vomiting, no constipation and no diarrhea/loose stools Genitourinary: no dysuria, no difficulty urinating, no urinary frequency, no urinary hesitancy and no urinary incontinence Musculoskeletal: no back pain, no neck pain, no joint pain, no stiffness and no myalgia Integumentary: no rash Neurologic: no gait abnormality, no unsteadiness, no falls and no generalized weakness Physical Exam Constitutional: cooperative; no acute distress Neck: trachea midline, no thyromegaly Respiratory: normal respiratory effort Auscultation: lungs clear to auscultation bilaterally; no crackles, no rales, no rhonchi and no wheezes Cardiovascular: Rate/Rhythm: regular rate and regular rhythm Heart Sounds: normal S1 and normal S2 Gastrointestinal (Abdomen): Inspection/Auscultation: abdomen normal to inspection Percussion/Palpation: abdomen soft; abdomen nontender, no guarding, abdomen not rigid, no hepatosplenomegaly, no hepatomegaly and no splenomegaly Skin: no rashes, warm and dry no jaundice Petechiae noted on arms and lower legs Neurologic: PERRL, EOMI, accommodation nl, no face palsy, no dysarthria Psychiatric: Orientation: alert, oriented x 3 and cooperative Results & Data Vital Signs (Past 12 Hours) Vital Signs Temp Pulse Pulse Resp BP BP Pulse Ox 12/03/19 16:56 92 H 18 109/61 95 12/03/19 15:54 36.9 C 108 H 18 137/62 97 Laboratory Results WBCs of 3.1, hemoglobin 8.4, hematocrit 24.2. Platelet count is 3. INR is 1.3. Sodium is 133, potassium 4.3, chloride 102, CO2 is 24, BUN is 26 creatinine 1.46. We have no old lab work to compare to. Glucose is 348, bilirubin is 1.1, AST 12, ALT is 14. Stool occult blood is negative. Diagnostic Findings XR chest 1V portable HISTORY: Shortness of breath. COMPARISON: Chest 12/27/2016. FINDINGS: There are low lung volumes. The heart remains mildly enlarged. No pleural effusions. No pneumothorax. No focal lung consolidations to suggest pneumonia. No evidence for pulmonary edema. IMPRESSION: No significant change compared to the prior study. No acute process. PG Care Time/CCT Total # of Minutes Spent Total Time Spent with Patient: Total time spent is greater than 50% in coordina tion of care (as documented) at patient's floor/unit and/or counseling patient: Coding Level of Care Code 69413 Initial Inpt Care Lvl 3 Diagnoses Pancytopenia D61.818 Diabetes mellitus E11.9 HTN (hypertension) I10
--- NOTE | 2019-12-03 20:17 | Communication Note ---
Date of Service: December 03, [address] 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 He is to be on dexamethasone 40 mg PO daily for four days with no taper. Anemia workup labs ordered for tomorrow as well. Alison will evaluate patient further tomorrow morning and may consider bone marrow biopsy for his pancytopenia in addition to his isolated extreme thrombocytopenia.
[2019-12-03] MEDS ORDERED: GLUCAGON FOR INJ 1 MG VIAL SQ PRN (21:01)
[2019-12-03] MEDS ORDERED: CARBOHYDRATES FOR HYPOGLYCEMIA PO PRN (21:01)
[2019-12-03] MEDS ORDERED: CETIRIZINE HCL 10 MG TABLET PO PRN (21:01)
[2019-12-03] MEDS ORDERED: GLUCOSE 40% GEL 15 GM TUBE PO PRN (21:01)
[2019-12-03] MEDS ORDERED: GLUCOSE 10 TABS/TUBE PO PRN (21:01)
[2019-12-03] MEDS ORDERED: FUROSEMIDE 40 MG TAB PO PRN (21:01)
[2019-12-03] MEDS ORDERED: METFORMIN HCL 500 MG TAB PO SCH (21:01)
[2019-12-03] MEDS ORDERED: POLYETHYLENE (MIRALAX) 17 GM PACK PO PRN (21:01)
[2019-12-03] MEDS ORDERED: DEXTROSE 50% 50 ML SYRINGE IV PRN (21:01)
[2019-12-03] MEDS ORDERED: PATIENT'S HEIGHT AND/OR WEIGHT NEEDED SCH (21:15)
[2019-12-03] MEDS ORDERED: PHARMACY GLYCEMIC MGMT CONSULT PRN (21:29)
[2019-12-03 21:31] LABS: Immature Retic Fraction 3.7 % (2.3-13.4); Reticulated Hemoglobin 32.9 pg (28.2-36.6); Reticulocyte % 0.8 % (0.5-2.0); Reticulocytes # 0.02 10^6/uL (0.02-0.10)
[2019-12-03] MEDS: INSULIN ASPART 100 UNITS/ML 3 ML PEN SC SCH (21:50)
[2019-12-03] MEDS: dexAMETHasone 4 MG TAB PO SCH (21:52)
[2019-12-03] MEDS: POTASSIUM CHLORIDE 20 MEQ TABCR PO SCH (21:53)
[2019-12-03] MEDS: CEROVITE ADV FORMULA TAB PO SCH (21:53)
[2019-12-03] MEDS: AMLODIPINE BESYLATE 5 MG TAB PO SCH (21:54)
[2019-12-03] MEDS: MONTELUKAST SODIUM 10 MG TABLET PO SCH (21:54)
[2019-12-03 21:57] LABS: C Reactive Protein 2.64 mg/dl (0-0.29); Ferritin 603.5 ng/ml (8-388); Thyroid Stimulating Hormone 3.92 uIu/ml (0.300-4.500)
[2019-12-03] MEDS ORDERED: INSULIN GLARGINE SOLOSTAR 100 UNITS/ML 3 ML PEN SC SCH (22:00)
[2019-12-03 22:06] LABS: Folate (Folic Acid) 23.36 ng/ml (>5.38)
[2019-12-04] MEDS: INSULIN ASPART 100 UNITS/ML 3 ML PEN SC SCH ×7 (00:13→23:56)
[2019-12-04] MEDS ORDERED: INSULIN HUMAN REGULAR PER UNIT 5 UNITS in SYRINGE 4.95 ML IV ONE (04:00)
[2019-12-04] MEDS: CEROVITE ADV FORMULA TAB PO SCH ×2 (08:02→20:52)
[2019-12-04] MEDS: VITAMIN B COMPLEX TAB PO SCH (08:02)
[2019-12-04] MEDS: dexAMETHasone 4 MG TAB PO SCH (08:02)
[2019-12-04] MEDS: PRAVASTATIN SOD 40 MG TAB PO SCH (08:02)
[2019-12-04] MEDS: OXYBUTYNIN CHLORIDE 5 MG TAB PO SCH (08:02)
[2019-12-04 08:22] LABS: Hematocrit (blood only) 23.6 % (42-52); Hemoglobin 8.4 g/dL (14.0-18.0); Mean Corpuscular Hgb Conc 35.6 g/dL (32-36); Mean Corpuscular Volume 87.1 fL (80-100); Platelet Count 4 K/uL (130-400); RDW Standard Deviation 44.3 fL (36.4-46.3); Red Blood Count 2.71 M/uL (4.7-6.1); White Blood Count 3.85 K/uL (4.8-10.8)
[2019-12-04] MEDS: INSULIN GLARGINE SOLOSTAR 100 UNITS/ML 3 ML PEN SC SCH (08:25)
[2019-12-04 08:41] LABS: BUN Creatinine Ratio 26.5 (10-20); Calcium 9.2 mg/dl (8.5-10.1); Creatinine Clr Calc Pharmacy 54.2 ml/min; Est GFR (African American) 61.1; Est GFR (Non-African American) 52.8; Magnesium 1.7 mg/dl (1.8-2.4)
[2019-12-04 08:57] LABS: Beta-Hydroxybutyrate 5.35 mg/dl (0.2-2.81)
[2019-12-04] MEDS ORDERED: GLIMEPIRIDE 2 MG TAB PO SCH (09:00)
[2019-12-04] MEDS ORDERED: MULTIVITAMIN TAB PO SCH (09:00)
[2019-12-04 09:03] LABS: Potassium 5.2 mmol/L (3.5-5.1)
[2019-12-04 10:01] LABS: ALC (manual) 0.91 K/uL (1.2-3.4); ANC (manual) 2.66 K/uL (1.4-6.5); Blast # (manual) 0.03 K/uL (0-0); Blast Cells % (manual) 0.9 %; Eosinophils # (manual) 0.17 K/uL (0-0.5); Eosinophils % (manual) 4.4 %; Lymphocytes # (manual) 0.91 K/uL (1.2-3.4); Lymphocytes % (manual) 23.7 %; Monocytes # (manual) 0.07 K/uL (0.11-0.59); Monocytes % (manual) 1.8 %; Neutrophils # (manual) 2.66 K/uL (1.4-6.5); Neutrophils % (manual) 69.2 %; Ovalocytes 1+; Platelet Estimate SIGNIFIC DECREASED (Normal)
--- NOTE | 2019-12-04 10:29 | Pharmacy Report ---
Glycemic Control Consultation - Date of Service December 04, 2019 - Scope Scope: Glycemic Pharmacist consulted for glycemic control and to write orders per [facility] inpatient glycemic control protocol. - Objective Weight: 93.4 kg Accuchecks BSG (last 24hrs): 12/03/19 12/03/19 12/03/19 16:38 19:45 20:46 Glucose 348 H* POC Glucose 170 H 185 H 12/04/19 12/04/19 12/04/19 00:09 03:21 07:30 Glucose 306 H* POC Glucose 265 H 306 H* 12/04/19 07:35 Glucose POC Glucose 294 H Laboratory Data (last 24hrs): 12/03/19 12/04/19 16:38 07:30 Potassium 4.3 5.2 H D Carbon Dioxide 24 27 Anion Gap 7.0 5.0 Creatinine 1.46 H 1.29 Est Cr Clr Drug Dosing Not Reportable 54.2 Beta-Hydroxybutyric Acd 4.64 H 5.35 H - Recent Pertinent Medications Outpatient Anti-diabetic Regimen: * Lantus 26 units qAM * Amaryl 4 mg PO daily * metformin The patient is currently receiving: * Basal insulin: Lantus 26 units every 24 hours (received an additional 26 units yesterday evening 12/03/2019 since didn't receive in AM) * Correctional Insulin: Novolog Correction per scale ACHS Goal Range: Low 110 mg/dL - High 140 mg/dL Correction Factor: 15 mg/dL/unit * Prandial insulin: Per carb ratio of 1 unit per 6 grams CHO consumed Risk Factors for Insulin Resistance: * Steroids: dexamethasone 40 mg PO daily x 4 days starting yesterday evening * Diet: T2DM - Assessment & Plan Assessment & Plan: ASSESSMENT: * Mr Gustafson is a 78 y/0 M with a PMH of T2DM on insulin and 2 oral medications who 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 Patient started on dexamethasone 40 mg PO daily x 4 days last night. * BSGs have been uncontrolled - overnight BSGs were 265-306 mg/dL (received additional 22 units overnight). * Patient received Lantus 26 units last night (missed AM dose) -- plan to receive Lantus 26 units this morning. Will need increased tomorrow. * Novolog started at weight-based stress of 3 dosing. Tighten further for now to create a bolus heavy regimen. * Hold oral agents for now. PLAN FOR INPATIENT GLYCEMIC CONTROL: * Holding outpatient oral diabetes medications * Basal insulin * Lantus 26 units SQ qAM * Bolus insulin * NovoLog per scale ACHS or Q6hrs while NPO * Goal Range: Low 110 mg/dL - High 140 mg/dL * Correction Factor: 12 mg/dL/unit * Nutritional / Prandial insulin per carb ratio of 1 unit per 4 grams CHO consumed * Please note that the plan above was derived based on current level of insulin resistance and hospital stress. These recommendations are appropriate for inpatient admission only. Plan of care upon discharge will need to be reassessed to avoid potential outpatient hypo/hyperglycemia. Thank you.
[2019-12-04] MEDS ORDERED: INSULIN HUMAN NPH SC SCH (12:00)
[2019-12-04] MEDS ORDERED: INSULIN HUMAN REGULAR PER UNIT 9 UNITS in SYRINGE 8.91 ML IV ONE (12:45)
--- NOTE | 2019-12-04 13:28 | Hospitalist Progress Note ---
Date of Service December 04, 2019 Assessment & Plan (1) Thrombocytopenia: Ddx includes ITP vs. MDS or AML. Peripheral smear did not have blasts initially (per Dr. Vital), but did on repeat smear on 12/03. This could be a proliferative disorder vs. just the steroid taking effect. - Will give 2 units platelets for his bloody BM this morning (12/03). - Retest platelets after transfusion completed. If no bump, more likely to be ITP. - Continue steroids - Oncology follow - Appreciate recs (2) Pancytopenia: Patient has new onset pancytopenia with significant thrombocytopenia. Likely a combination of factors with some level of poor bone marrow response and ITP for the platelets. - Oncology discussing bone marrow biopsy. Timing dependent on platelets. - Monitor (3) Bright red blood per rectum: Morning of 12/03 had an episode of BRBPR. Vital stable. Likely due to low platelets. - Will recheck CBC after platelet transfusion and monitor bleeding. (4) Diabetes mellitus: No A1c in the chart. - Continue long-acting insulin & sliding scale - Glycemic pharmacist managing while on steroids. - ADA diet (5) HTN (hypertension): BP is 125/60 today. - Continue amlodipine (6) DVT prophylaxis: SCDs - High bleeding risk with thrombocytopenia. Admission and Anticipated Discharge Date Admission Date: December 03, 2019 Subjective Reports an episode of diarrhea this morning with bright red blood afterward. Other than his general fatigue, no focal complaints apart from the previous. Reports no fevers/chills, chest pain, shortness of breath, abdominal pain, nausea, or vomiting. Physical Exam Constitutional: WD/WN, vitals as above Eyes: EOM intact bilaterally; no conjunctival abnormality ENMT: external ear and nose normal, oropharynx normal Neck: trachea midline, no thyromegaly normal visual inspection Respiratory: normal respiratory effort, lungs clear to auscultation no respiratory distress Cardiovascular: RRR, no murmur, no edema Gastrointestinal (Abdomen): Inspection/Auscultation: abdomen normal to inspection; abdomen not distended Musculoskeletal: no cyanosis or clubbing, extremities motor strength 5/5 Skin: no rashes, warm and dry Neurologic: moves all extremities and awake Psychiatric: Orientation: alert, oriented to person and cooperative Results & Data ([facility]) Vital Signs (Past 12 Hours) Vital Signs Temp Pulse Pulse Resp BP BP BP 12/04/19 12:27 36.2 C L 80 20 126/61 12/04/19 12:19 36.5 C 75 18 117/56 L 12/04/19 12:04 83 18 12/04/19 12:00 36.3 C L 88 18 132/66 12/04/19 11:48 36.3 C L 78 18 111/53 L 12/04/19 07:21 36.0 C L 80 18 111/60 12/04/19 03:25 36.3 C L 80 18 119/63 Pulse Ox 12/04/19 12:27 97 12/04/19 12:19 98 12/04/19 12:04 97 12/04/19 12:00 96 12/04/19 11:48 96 12/04/19 07:21 95 12/04/19 03:25 92 PG Care Time/CCT Total # of Minutes Spent Total Time Spent with Patient: Total time spent is greater than 50% in coordination of care (as documented) at patient's floor/unit and/or counseling patient: Coding Level of Care Code 51886 Subseq Hosp Care Lvl 3 Diagnoses Thrombocytopenia D69.6 Pancytopenia D61.818 Bright red blood per rectum K62.5 Diabetes mellitus E11.9 HTN (hypertension) I10 DVT prophylaxis Z29.9
[2019-12-04 14:22] LABS: Hematocrit (blood only) 21.5 % (42-52); Hemoglobin 7.7 g/dL (14.0-18.0); Mean Corpuscular Hemoglobin 30.9 pg (25-34); Mean Corpuscular Hgb Conc 35.8 g/dL (32-36); Mean Corpuscular Volume 86.3 fL (80-100); Mean Platelet Volume 8.7 fL (7.4-10.4); Platelet Count 18 K/uL (130-400); RDW Standard Deviation 44.1 fL (36.4-46.3); Red Blood Count 2.49 M/uL (4.7-6.1); White Blood Count 5.18 K/uL (4.8-10.8)
[2019-12-04 14:37] LABS: Platelet Estimate SIGNIFIC DECREASED (Normal)
--- NOTE | 2019-12-04 15:28 | Electrocardiogram Report ---
Test Reason : Blood Pressure : / mmHG Vent. Rate : 099 BPM Atrial Rate : 099 BPM P-R Int : 136 ms QRS Dur : 092 ms QT Int : 360 ms P-R-T Axes : 094 -18 128 degrees QTc Int : 462 ms Normal sinus rhythm Left ventricular hypertrophy with repolarization abnormality Abnormal ECG When compared with ECG of 27-DEC-2016 13:37, T wave inversion more evident in Lateral leads Confirmed by Sj Briseno ([id number]) on 12/04/2019 3:28:17 PM Referred By: REFERRED SELF Confirmed By:Sj Briseno
--- NOTE | 2019-12-04 15:46 | Electrocardiogram Report ---
Test Reason : Blood Pressure : / mmHG Vent. Rate : 061 BPM Atrial Rate : 061 BPM P-R Int : 154 ms QRS Dur : 092 ms QT Int : 444 ms P-R-T Axes : -23 078 -69 degrees QTc Int : 446 ms Normal sinus rhythm with sinus arrhythmia Septal infarct , age undetermined Abnormal ECG When compared with ECG of 03-DEC-2019 16:51, T wave inversion now evident in Inferolateral leads T wave inversion no longer evident in Lateral leads Confirmed by Sj Briseno ([id number]) on 12/04/2019 3:46:30 PM Referred By: REFERRED SELF Confirmed By:Sj Briseno
--- NOTE | 2019-12-04 16:21 | Electrocardiogram Report ---
Test Reason : Blood Pressure : / mmHG Vent. Rate : 062 BPM Atrial Rate : 062 BPM P-R Int : 146 ms QRS Dur : 098 ms QT Int : 460 ms P-R-T Axes : 100 -18 136 degrees QTc Int : 466 ms Normal sinus rhythm Left ventricular hypertrophy with repolarization abnormality Abnormal ECG When compared with ECG of 04-DEC-2019 03:43, Criteria for Septal infarct are no longer Present T wave inversion no longer evident in Inferior leads Confirmed by Sj Briseno ([id number]) on 12/04/2019 4:20:36 PM Referred By: REFERRED SELF Confirmed By:Sj Briseno
--- NOTE | 2019-12-04 17:08 | Oncology Consultation ---
Date of Consultation December 03, 2019 Assessment & Plan (1) Thrombocytopenia: His platelet count is severely low and is out of proportion to his other counts. 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 However, more commonly we see ITP in the setting of preserved WBCs and hemoglobin. I suspect he may have more than one issue. His differential did not reveal any immature cells on admission. I doubt he has a leukemia, given his normal ANC and higher hemoglobin. However, I do suspect he may have a component of another marrow disorder, like MDS. The diagnosis of ITP is an empiric one and we often make it by treating patients with steroids. If they respond, that confirms the diagnosis. I would start dexamethasone 40 mg PO daily for 4 days. I think he may ultimately require a bone marrow biopsy, but we can reassess this in the coming days. Present on Admission?: Yes History of Present Illness Reason for Consultation: Pancytopenia Attending Physician: Lane Cota MD History of Present Illness Mr. Gustafson is a 78 year old man with a history of DM, HTN, idiopathic urticaria and anaphylaxis, and prostate cancer. He was treated for the latter disease in 2007 and underwent RT and brachytherapy. He also had a melanoma removed from his back in 2017 for which he is undergoing surveillance. He has macular degeneration and has significant vision loss. He has recently been undergoing injection therapy for it. He has had increasing fatigue and dyspnea with exertion over the last few weeks. He has been losing a bit of weight as well. He came to his physician with these symptoms and had blood work that revealed a WBC count of 3.1 with an ANC of 1.6, hemoglobin 8.6, and platelets of 3k. He does not recall being told he had abnormal counts before. He denies any fevers or sweats, enlarging lymph nodes, cough, shortness of breath at rest, sinusitis symptoms, diarrhea, or abdominal pain. He cannot say that he has observed any gross bleeding anywhere, though he may have had one or two reddish bowel movements in that time. He denies any headaches or focal neurologic complaints. He has not started any new medications recently. Allergies Allergy/AdvReac Type Severity Reaction Status Date / Time Sulfa (Sulfonamide Allergy Severe HIVES Verified 12/03/19 17:21 Antibiotics) povidone-iodine Allergy Mild burning Verified 12/03/19 17:21 sensation Home Medications Home Medications Medication Instructions Recorded Confirmed Type amlodipine 5 mg tablet 5 mg PO QPM 06/21/19 12/03/19 History cetirizine 10 mg tablet 5 mg PO DAILY PRN 06/21/19 12/03/19 History furosemide 40 mg tablet 40 mg PO DAILY PRN 06/21/19 12/03/19 History glimepiride 4 mg tablet 4 mg PO QAM 06/21/19 12/03/19 History metformin 1,000 mg tablet 1,000 mg PO BID 06/21/19 12/03/19 History multivitamin 1 tab PO DAILY 06/21/19 12/03/19 History oxybutynin chloride 5 mg tablet 5 mg PO QAM 06/21/19 12/03/19 History vitamin B complex 1 tab PO QAM 06/21/19 12/03/19 History vitamins A,C,N-tcim-uzoeze 14,320 1 cap PO BID 06/21/19 12/03/19 History unit-226 mg-200 unit capsule montelukast 10 mg tablet 10 mg PO QPM #90 tab 11/12/19 12/03/19 Rx fluconazole 150 mg PO MONTHLY 12/03/19 12/03/19 History insulin glargine [Lantus U-100 26 unit SUBCUT QAM 12/03/19 12/03/19 History Insulin] potassium chloride 20 meq PO QPM 12/03/19 12/03/19 History pravastatin 40 mg PO QAM 12/03/19 12/03/19 History Patient History Social History Preferred Language: [place] Communication Ability: Effective Beliefs That Will Affect Care: None marital status: Current Living Situation: Spouse current occupational status: retired Other Information That Helps Us Care for You: No Feels Safe at Home: Yes Safety Concerns: Feels Safe At This Time Smoking Status: Former smoker Tobacco Type: smokeless tobacco ; Do You Dip or Chew Tobacco: Yes ; Second Hand Exposure: No ; Hx Alcohol Use: No Hx Substance Use: No Review of Systems Review of Systems: All systems reviewed & are unremarkable except as noted in HPI & below Physical Exam Constitutional: comfortable; no acute distress and not ill appearing ENMT: external ear and nose normal, oropharynx normal Respiratory: normal respiratory effort, lungs clear to auscultation Cardiovascular: RRR, no murmur, no edema Gastrointestinal (Abdomen): Inspection/Auscultation: normal bowel sounds; abdomen not distended Percussion/Palpation: abdomen soft; abdomen nontender Skin: + rash (scattered petechiae in a variety of locations, none confluent); no ecchymosis Psychiatric: A+Ox3, euthymic affect Lymphatic: no cervical or axillary lymphadenopathy Results & Data Vital Signs (Past 12 Hours) Vital Signs Temp Pulse Pulse Resp BP BP BP 12/04/19 16:34 36.6 C 64 18 124/83 12/04/19 16:00 36.6 C 75 18 125/52 L 12/04/19 15:30 36.1 C L 63 18 134/50 L 12/04/19 15:27 76 12/04/19 15:20 36.6 C 77 18 131/63 12/04/19 14:50 36.1 C L 63 18 134/50 L 12/04/19 14:35 36.5 C 67 16 131/53 L 12/04/19 14:22 36.5 C 18 131/53 L 12/04/19 14:18 36.5 C 72 16 127/63 12/04/19 12:49 81 18 12/04/19 12:27 36.2 C L 80 20 126/61 12/04/19 12:19 36.5 C 75 18 117/56 L 12/04/19 12:04 83 18 12/04/19 12:00 36.3 C L 88 18 132/66 12/04/19 11:48 36.3 C L 78 18 111/53 L 12/04/19 07:21 36.0 C L 80 18 111/60 Pulse Ox 12/04/19 16:34 97 12/04/19 16:00 97 12/04/19 15:30 97 12/04/19 15:27 12/04/19 15:20 97 12/04/19 14:50 97 12/04/19 14:35 96 12/04/19 14:22 96 12/04/19 14:18 96 12/04/19 12:49 96 12/04/19 12:27 97 12/04/19 12:19 98 12/04/19 12:04 97 12/04/19 12:00 96 12/04/19 11:48 96 12/04/19 07:21 95 Laboratory Results Laboratory Tests 12/03/19 12/03/19 12/03/19 16:38 16:38 16:38 WBC 3.12 L Hgb 8.4 L Plt Count 3 L* Neut # (Auto) 1.66 Lymph # (Auto) 0.86 L Reticulocyte # INR 1.3 H APTT 24.1 Creatinine 1.46 H Glucose 348 H* Iron Transferrin Ferritin Total Bilirubin 1.1 H Lactate Dehydrogenase Vitamin B12 Folate POC Stool Occult Blood 12/03/19 12/03/19 12/03/19 21:15 21:15 21:15 WBC Hgb Plt Count Neut # (Auto) Lymph # (Auto) Reticulocyte # 0.02 INR APTT Creatinine Glucose Iron 63 Transferrin 148 L Ferritin 603.5 H Total Bilirubin Lactate Dehydrogenase 660 H Vitamin B12 Folate POC Stool Occult Blood 12/03/19 12/03/19 21:15 Unknown WBC Hgb Plt Count Neut # (Auto) Lymph # (Auto) Reticulocyte # INR APTT Creatinine Glucose Iron Transferrin Ferritin Total Bilirubin Lactate Dehydrogenase Vitamin B12 957 H Folate 23.36 POC Stool Occult Blood Negative
--- NOTE | 2019-12-04 18:58 | Ultrasound Report ---
US abdomen limited HISTORY: 78 years-old Male Liver for cirrhotic features; spleen for splenomeg clinical concern for c irrhosis COMPARISON: CT of the abdomen and pelvis 07/27/2010, chest CT 10/04/2007. TECHNIQUE: Multiple real-time sonographic images of the upper abdomen were obtained assessing graysca le appearance and color flow FINDINGS: There is slightly increased echogenicity of the liver. Liver is prominent in size measuring up to 16. 7 cm. No definite marginal nodularity, intrahepatic biliary ductal dilation or focal hepatic mass les ion. The spleen is enlarged, 17.0 cm. The parenchyma is homogeneous without focal mass. The imaged ga llbladder appears mildly contracted. The visualized right kidney demonstrates no hydronephrosis. No a scites. IMPRESSION: 1. Slightly increased echogenicity of the liver may reflect hepatic steatosis. 2. No marginal nodularity identified to suggest cirrhotic liver disease. 3. Splenomegaly. 4. No ascites. ACT 112: Negative or not required by law. The above report was generated using voice recognition software. It may contain grammatical, syntax o r spelling errors. Electronically signed by: Joe Fish M.D. 12/04/2019 6:56 PM
[2019-12-04 19:15] LABS: Hematocrit (blood only) 21.7 % (42-52); Hemoglobin 7.8 g/dL (14.0-18.0); Mean Corpuscular Hemoglobin 30.6 pg (25-34); Mean Corpuscular Hgb Conc 35.9 g/dL (32-36); Mean Corpuscular Volume 85.1 fL (80-100); Platelet Count 3 K/uL (130-400); RDW Coefficient of Variation 13.8 % (11.5-14.5); RDW Standard Deviation 42.4 fL (36.4-46.3); Red Blood Count 2.55 M/uL (4.7-6.1); White Blood Count 4.04 K/uL (4.8-10.8)
[2019-12-04] MEDS: MONTELUKAST SODIUM 10 MG TABLET PO SCH (20:50)
[2019-12-04] MEDS: AMLODIPINE BESYLATE 5 MG TAB PO SCH (20:53)
[2019-12-04] MEDS: POTASSIUM CHLORIDE 20 MEQ TABCR PO SCH (20:54)
[2019-12-05] MEDS: INSULIN ASPART 100 UNITS/ML 3 ML PEN SC SCH ×5 (04:08→20:49)
[2019-12-05 06:22] LABS: Hematocrit (blood only) 21.1 % (42-52); Hemoglobin 7.4 g/dL (14.0-18.0); Mean Corpuscular Hemoglobin 30.2 pg (25-34); Mean Corpuscular Hgb Conc 35.1 g/dL (32-36); Mean Corpuscular Volume 86.1 fL (80-100); Platelet Count 2 K/uL (130-400); RDW Coefficient of Variation 13.9 % (11.5-14.5); RDW Standard Deviation 43.7 fL (36.4-46.3); Red Blood Count 2.45 M/uL (4.7-6.1); White Blood Count 3.35 K/uL (4.8-10.8)
[2019-12-05 06:27] LABS: Albumin Level 2.8 gm/dl (3.4-5.0); BUN Creatinine Ratio 37.4 (10-20); Calcium 8.9 mg/dl (8.5-10.1); Creatinine Clr Calc Pharmacy 61.3 ml/min; Est GFR (Non-African American) 61.3; Magnesium 1.9 mg/dl (1.8-2.4); Potassium 4.4 mmol/L (3.5-5.1)
[2019-12-05 06:37] LABS: Bilirubin,Total 0.7 mg/dl (0.2-1); Globulin 2.9 gm/dl (2.5-4.0); Phosphorus 4.3 mg/dl (2.5-4.9); Total Protein 5.7 gm/dl (6.4-8.2)
[2019-12-05] MEDS ORDERED: INSULIN HUMAN NPH SC SCH (07:30)
[2019-12-05] MEDS: OXYBUTYNIN CHLORIDE 5 MG TAB PO SCH (07:50)
[2019-12-05] MEDS: dexAMETHasone 4 MG TAB PO SCH (07:50)
[2019-12-05] MEDS: CEROVITE ADV FORMULA TAB PO SCH ×2 (07:50→20:50)
[2019-12-05] MEDS: PRAVASTATIN SOD 40 MG TAB PO SCH (07:50)
[2019-12-05] MEDS: VITAMIN B COMPLEX TAB PO SCH (07:50)
[2019-12-05] MEDS: INSULIN GLARGINE SOLOSTAR 100 UNITS/ML 3 ML PEN SC SCH (07:55)
[2019-12-05] MEDS ORDERED: SODIUM CHLORIDE 0.9% 250 ML IV PRN (09:54)
--- NOTE | 2019-12-05 12:01 | Pharmacy Report ---
Pharmacy Glycemic Short Note 2 - Date of Service December 05, 2019 - Glycemic Short BSG Results (Last 24 hours): 12/04/19 12/04/19 12/04/19 12:03 12:05 16:44 Glucose POC Glucose 356 H* 396 H* 332 H* 12/04/19 12/04/19 12/04/19 16:45 20:16 20:17 Glucose POC Glucose 304 H* 363 H* 359 H* 12/04/19 12/05/19 12/05/19 23:53 03:58 05:13 Glucose 218 H POC Glucose 274 H 224 H 12/05/19 07:39 Glucose POC Glucose 256 H ASSESSMENT: 12/04: * Patient received total of 176 units of insulin yesterday, of which 51 were basal insulin * Fasting BSG this AM remains elevated at 218 mg/dL - however improving from yesterday * Plan to continue same home Lantus dose, but increase NPH to help cover dexamethasone by ~20% * Plan to tighten CR slightly this morning PLAN FOR INPATIENT GLYCEMIC CONTROL: * Hold outpatient oral diabetes medications * Basal insulin * Lantus 26 daily - continue * NPH 30 daily (to be given with dexamethasone) - increased * Bolus insulin - tighten * NovoLog per scale ACHS or Q6hrs while NPO * Goal Range: Low 110 mg/dL - High 140 mg/dL * Correction Factor: 12 mg/dL/unit * Nutritional / Prandial insulin per carb ratio of 1 unit per 4 grams CHO consumed PLAN FOR DISCHARGE: * to be determined - if plan is to discharge on steroids/outpatient regimen may need adjusted
--- NOTE | 2019-12-05 12:33 | Hospitalist Progress Note ---
Date of Service December 05, 2019 Assessment & Plan (1) Thrombocytopenia: Ddx includes ITP vs. MDS or AML. Peripheral smear did not have blasts initially (per Dr. Vital), but did on repeat smear on 12/03. This could be a proliferative disorder vs. just the steroid taking effect. - Will give 2 units platelets for his bloody BM this morning (12/03). - Retested platelets 2 hours after transfusion completed. 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 - Continue steroids - Oncology following - Appreciate recs - If major GI bleeding, will need IVIg. (2) Pancytopenia: Patient has new onset pancytopenia with significant thrombocytopenia. Likely a combination of factors with some level of poor bone marrow response and ITP for the platelets. - Oncology discussing bone marrow biopsy. Timing dependent on platelets. Likely as an outpatient. - Monitor (3) Bright red blood per rectum: Morning of 12/03 had an episode of BRBPR. Hemoglobin largely stable and vitals stable. Likely due to low platelets. From his report, it is some bleeding after passing a non-bloody BM, then continues to bleed while wiping himself. - No major bleeding today. Will give 1 unit PRBCs to give him a buffer if he has more mild bleeding until platelets rebound. (4) Diabetes mellitus: No A1c in the chart. - Continue long-acting insulin & sliding scale - Glycemic pharmacist managing while on steroids. - ADA diet (5) HTN (hypertension): BP is 122/60 today. No symptoms of low BP. - Continue amlodipine (6) DVT prophylaxis: SCDs - High bleeding risk with thrombocytopenia. Admission and Anticipated Discharge Date Admission Date: December 03, 2019 Subjective No bloody BMs today. The bowel movements sound like hemorrhoids, not a higher up bleed. Reports no fevers/chills, chest pain, shortness of breath, abdominal pain, nausea, or vomiting. Physical Exam Constitutional: WD/WN, vitals as above Eyes: EOM intact bilaterally; no conjunctival abnormality ENMT: external ear and nose normal, oropharynx normal Neck: trachea midline, no thyromegaly normal visual inspection Respiratory: normal respiratory effort, lungs clear to auscultation no respiratory distress Cardiovascular: RRR, no murmur, no edema Gastrointestinal (Abdomen): Inspection/Auscultation: abdomen normal to inspection; abdomen not distended Musculoskeletal: no cyanosis or clubbing, extremities motor strength 5/5 Skin: no rashes, warm and dry Neurologic: moves all extremities and awake Psychiatric: Orientation: alert, oriented to person and cooperative Results & Data ([facility]) Vital Signs (Past 12 Hours) Vital Signs Temp Pulse Pulse Resp BP BP Pulse Ox 12/05/19 11:02 36.4 C L 71 16 117/58 L 12/05/19 10:50 36.5 C 85 18 125/69 12/05/19 07:33 36.7 C 74 18 132/57 L 97 12/05/19 04:05 36.4 C L 70 18 115/59 L 96 PG Care Time/CCT Total # of Minutes Spent Total Time Spent with Patient: Total time spent is greater than 50% in coordination of care (as documented) at patient's floor/unit and/or counseling patient: Coding Level of Care Code 77465 Subseq Hosp Care Lvl 3 Diagnoses Thrombocytopenia D69.6 Pancytopenia D61.818 Bright red blood per rectum K62.5 Diabetes mellitus E11.9 HTN (hypertension) I10 DVT prophylaxis Z29.9
[2019-12-05] MEDS: POTASSIUM CHLORIDE 20 MEQ TABCR PO SCH (20:50)
[2019-12-05] MEDS: AMLODIPINE BESYLATE 5 MG TAB PO SCH (20:50)
[2019-12-05] MEDS: MONTELUKAST SODIUM 10 MG TABLET PO SCH (20:51)
[2019-12-06] MEDS: INSULIN ASPART 100 UNITS/ML 3 ML PEN SC SCH ×6 (00:19→20:54)
--- NOTE | 2019-12-06 07:27 | Pharmacy Report ---
Pharmacy Glycemic Short Note 2 - Date of Service December 06, 2019 - Glycemic Short BSG Results (Last 24 hours): 12/05/19 12/05/19 12/05/19 07:39 11:28 11:29 POC Glucose 256 H 302 H* 307 H* 12/05/19 12/05/19 12/06/19 16:42 20:14 00:00 POC Glucose 220 H 241 H 209 H 12/06/19 03:53 POC Glucose 209 H ASSESSMENT: 12/05: * Patient received total of 139 units of insulin yesterday, of which 56 were basal insulin * BSGs continue to improve, however still >200 * Increase NPH this morning to 35 units to help with dexamethasone effects - continues on dexamethasone 40 mg daily today is last day of current steroid dosing Will follow up with provider to determine plan with steroids after * Tighten CR to 3.5 this morning 12/04: * Patient received total of 176 units of insulin yesterday, of which 51 were basal insulin * Fasting BSG this AM remains elevated at 218 mg/dL - however improving from yesterday * Plan to continue same home Lantus dose, but increase NPH to help cover dexamethasone by ~20% * Plan to tighten CR slightly this morning PLAN FOR INPATIENT GLYCEMIC CONTROL: * Hold outpatient oral diabetes medications * Basal insulin * Lantus 26 daily - continue * NPH 35 daily (to be given with dexamethasone) - increased * Bolus insulin - tighten * NovoLog per scale ACHS or Q6hrs while NPO * Goal Range: Low 110 mg/dL - High 140 mg/dL * Correction Factor: 10 mg/dL/unit * Nutritional / Prandial insulin per carb ratio of 1 unit per 3.5 grams CHO consumed PLAN FOR DISCHARGE: * to be determined - if plan is to discharge on steroids/outpatient regimen may need adjusted
[2019-12-06] MEDS ORDERED: INSULIN HUMAN NPH SC SCH (07:30)
[2019-12-06 07:49] LABS: Hematocrit (blood only) 22.8 % (42-52); Hemoglobin 8.1 g/dL (14.0-18.0); Mean Corpuscular Hemoglobin 30.2 pg (25-34); Mean Corpuscular Hgb Conc 35.5 g/dL (32-36); Mean Corpuscular Volume 85.1 fL (80-100); Platelet Count 2 K/uL (130-400); Platelet Estimate SIGNIFIC DECREASED (Normal); RDW Coefficient of Variation 13.8 % (11.5-14.5); RDW Standard Deviation 42.1 fL (36.4-46.3); Red Blood Count 2.68 M/uL (4.7-6.1); White Blood Count 3.04 K/uL (4.8-10.8)
[2019-12-06 07:53] LABS: BUN Creatinine Ratio 33.1 (10-20); Calcium 8.6 mg/dl (8.5-10.1); Creatinine Clr Calc Pharmacy 65.4 ml/min; Est GFR (African American) 75.8; Est GFR (Non-African American) 65.4; Magnesium 1.9 mg/dl (1.8-2.4); Potassium 4.3 mmol/L (3.5-5.1)
[2019-12-06] MEDS: VITAMIN B COMPLEX TAB PO SCH (07:55)
[2019-12-06] MEDS: PRAVASTATIN SOD 40 MG TAB PO SCH (07:55)
[2019-12-06] MEDS: OXYBUTYNIN CHLORIDE 5 MG TAB PO SCH (07:55)
[2019-12-06] MEDS: dexAMETHasone 4 MG TAB PO SCH (07:55)
[2019-12-06] MEDS: CEROVITE ADV FORMULA TAB PO SCH ×2 (07:55→20:51)
[2019-12-06] MEDS: INSULIN GLARGINE SOLOSTAR 100 UNITS/ML 3 ML PEN SC SCH (07:59)
[2019-12-06 08:05] LABS: Estimated Average Glucose 186 mg/dl; Hemoglobin A1C 8.1 % (4.5-5.6)
--- NOTE | 2019-12-06 08:39 | Hematology/Oncology Prog Note ---
Date of Service December 06, 2019 Assessment & Plan (1) Thrombocytopenia: His platelet count remains low. 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 I still remain concerned that he has an underlying bone marrow process, but for now I think it is prudent to wait on a bone marrow biopsy until his platelets are higher. He is finishing his pulse of steroids today and responses are generally seen within a few days to a week, though maximal response can take longer. I would like to observe him at least until we see a consistent trend up. I would continue checking daily CBCs in the meantime. If he manifests any evidence of bleeding, I would give him IVIG 1 gram/kg. I will check in with him tomorrow. Present on Admission?: Yes Subjective Mr. Gustafson was seated comfortably eating dinner when I saw him. He had an episode of scanty blood on his toilet tissue when he moved his bowels this morning, but has had no further bleeding since. His vision has been worse since he missed his eye injection this week. He denies any headaches, abdominal pain, bleeding, or back or joint pain. Review of Systems Review of Systems: All systems reviewed & are unremarkable except as noted in HPI & below Physical Exam Constitutional: comfortable; no acute distress and not ill appearing ENMT: external ear and nose normal, oropharynx normal Respiratory: normal respiratory effort, lungs clear to auscultation Cardiovascular: RRR, no murmur, no edema Gastrointestinal (Abdomen): Inspection/Auscultation: normal bowel sounds; abdomen not distended Percussion/Palpation: abdomen soft; abdomen nontender Skin: + rash (scattered petechiae in a variety of locations, none confluent); no ecchymosis Psychiatric: A+Ox3, euthymic affect Lymphatic: no cervical or axillary lymphadenopathy Results & Data Vital Signs (Past 12 Hours) Vital Signs Temp Pulse Pulse Resp BP Pulse Ox 12/06/19 07:25 36.8 C 70 18 129/70 96 12/06/19 02:49 36.7 C 76 20 144/56 H 94 12/05/19 23:26 36.3 C L 66 19 104/56 L 95 12/05/19 23:05 63 Laboratory Results Abnormal lab results 12/05/19 12/06/19 12/06/19 Range/Units 20:14 00:00 03:53 WBC (4.8-10.8) K/uL RBC (4.7-6.1) M/uL Hgb (14.0-18.0) g/dL Hct (42-52) % Plt Count (130-400) K/uL Chloride (98-107) mmol/L BUN (7-18) mg/dl BUN/Creatinine Ratio (10-20) Glucose (70-99) mg/dl POC Glucose 241 H 209 H 209 H (70-99) mg/dl Hemoglobin A1c (4.5-5.6) % 12/06/19 12/06/19 12/06/19 Range/Units 07:02 07:02 07:02 WBC 3.04 L (4.8-10.8) K/uL RBC 2.68 L (4.7-6.1) M/uL Hgb 8.1 L (14.0-18.0) g/dL Hct 22.8 L (42-52) % Plt Count 2 L* (130-400) K/uL Chloride 109 H (98-107) mmol/L BUN 36 H (7-18) mg/dl BUN/Creatinine Ratio 33.1 H (10-20) Glucose 168 H (70-99) mg/dl POC Glucose (70-99) mg/dl Hemoglobin A1c 8.1 H (4.5-5.6) % 12/06/19 12/06/19 12/06/19 Range/Units 07:35 11:38 16:45 WBC (4.8-10.8) K/uL RBC (4.7-6.1) M/uL Hgb (14.0-18.0) g/dL Hct (42-52) % Plt Count (130-400) K/uL Chloride (98-107) mmol/L BUN (7-18) mg/dl BUN/Creatinine Ratio (10-20) Glucose (70-99) mg/dl POC Glucose 176 H 187 H 274 H (70-99) mg/dl Hemoglobin A1c (4.5-5.6) %
--- NOTE | 2019-12-06 16:08 | Hospitalist Progress Note ---
Date of Service December 06, 2019 Assessment & Plan (1) Thrombocytopenia: Ddx includes ITP vs. MDS or AML. Peripheral smear did not have blasts initially (per Dr. Vital), but did on repeat smear on 12/03. This could be a proliferative disorder vs. just the steroid taking effect. - Gave 2 units platelets for his bloody BM on 12/03. - Retested platelets 2 hours after transfusion completed. 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 - Finished 4 days of dexamethasone on 12/05. Should respond by 1-2 weeks. - Oncology following - Appreciate recs - If major GI bleeding, will need IVIg. (2) Pancytopenia: Patient has new onset pancytopenia with significant thrombocytopenia. Likely a combination of factors with some level of poor bone marrow response and ITP for the platelets. - Oncology discussing bone marrow biopsy. Timing dependent on platelets. Likely as an outpatient. - Monitor (3) Bright red blood per rectum: Morning of 12/03 had an episode of BRBPR. Hemoglobin largely stable and vitals stable. Likely due to low platelets. From his report, it is some bleeding after passing a non-bloody BM, then continues to bleed while wiping himself. - No major bleeding after 12/03. Got 1 unit of PRBCs on 12/04 and a dose of IV iron on 12/05. Will monitor. (4) Diabetes mellitus: A1c was 8.1% this admission. - Continue long-acting insulin & sliding scale - Glycemic pharmacist managing while on steroids. - ADA diet (5) HTN (hypertension): BP is 140/60 today. - Continue amlodipine (6) DVT prophylaxis: SCDs - High bleeding risk with thrombocytopenia. Admission and Anticipated Discharge Date Admission Date: December 03, 2019 Subjective Feels tired today. No major focal issues. No bleeding with BM today, but he did have a dark nose blow. Reports no fevers/chills, chest pain, shortness of breath, abdominal pain, nausea, or vomiting. Physical Exam Constitutional: WD/WN, vitals as above Eyes: EOM intact bilaterally; no conjunctival abnormality ENMT: external ear and nose normal, oropharynx normal Neck: trachea midline, no thyromegaly normal visual inspection Respiratory: normal respiratory effort, lungs clear to auscultation no respiratory distress Cardiovascular: RRR, no murmur, no edema Gastrointestinal (Abdomen): Inspection/Auscultation: abdomen normal to inspection; abdomen not distended Musculoskeletal: no cyanosis or clubbing, extremities motor strength 5/5 Skin: no rashes, warm and dry Neurologic: moves all extremities and awake Psychiatric: Orientation: alert, oriented to person and cooperative Results & Data ([facility]) Vital Signs (Past 12 Hours) Vital Signs Temp Pulse Resp BP BP Pulse Ox 12/06/19 15:16 36.7 C 73 20 137/61 97 12/06/19 11:26 36.9 C 74 18 132/57 L 96 12/06/19 07:25 36.8 C 70 18 129/70 96 PG Care Time/CCT Total # of Minutes Spent Total Time Spent with Patient: Total time spent is greater than 50% in coordination of care (as documented) at patient's floor/unit and/or counseling patient: Coding Level of Care Code 77134 Subseq Hosp Care Lvl 2 Diagnoses Thrombocytopenia D69.6 Pancytopenia D61.818 Bright red blood per rectum K62.5 Diabetes mellitus E11.9 HTN (hypertension) I10 DVT prophylaxis Z29.9
[2019-12-06] MEDS ORDERED: IRON SUCROSE 100 MG in 0.9 % SODIUM CHLORIDE 100 ML IV ONE (16:45)
[2019-12-06] MEDS: AMLODIPINE BESYLATE 5 MG TAB PO SCH (20:51)
[2019-12-06] MEDS: POTASSIUM CHLORIDE 20 MEQ TABCR PO SCH (20:51)
[2019-12-06] MEDS: MONTELUKAST SODIUM 10 MG TABLET PO SCH (20:52)
[2019-12-06 21:13] LABS: Haptoglobin 161 mg/dL (43-212); Methylmalonic Acid 270 nmol/L (87-318)
[2019-12-07 06:54] LABS: Hematocrit (blood only) 24.7 % (42-52); Hemoglobin 8.7 g/dL (14.0-18.0); Mean Corpuscular Hemoglobin 30.2 pg (25-34); Mean Corpuscular Hgb Conc 35.2 g/dL (32-36); Mean Corpuscular Volume 85.8 fL (80-100); Nucleated RBC # (auto) 0.04 K/uL (0-0); Nucleated RBC % (auto) 1.1 %; Platelet Count 2 K/uL (130-400); Platelet Estimate SIGNIFIC DECREASED (Normal); RDW Coefficient of Variation 13.9 % (11.5-14.5); RDW Standard Deviation 43.6 fL (36.4-46.3); Red Blood Count 2.88 M/uL (4.7-6.1); White Blood Count 3.78 K/uL (4.8-10.8)
[2019-12-07 07:02] LABS: BUN Creatinine Ratio 30.8 (10-20); Calcium 8.9 mg/dl (8.5-10.1); Creatinine Clr Calc Pharmacy 64.5 ml/min; Est GFR (African American) 74.1; Magnesium 1.9 mg/dl (1.8-2.4); Potassium 4.8 mmol/L (3.5-5.1)
[2019-12-07 07:04] LABS: Phosphorus 3.7 mg/dl (2.5-4.9)
[2019-12-07] MEDS: INSULIN GLARGINE SOLOSTAR 100 UNITS/ML 3 ML PEN SC SCH (08:26)
[2019-12-07] MEDS: PRAVASTATIN SOD 40 MG TAB PO SCH (08:26)
[2019-12-07] MEDS: VITAMIN B COMPLEX TAB PO SCH (08:26)
[2019-12-07] MEDS: OXYBUTYNIN CHLORIDE 5 MG TAB PO SCH (08:26)
[2019-12-07] MEDS: CEROVITE ADV FORMULA TAB PO SCH (08:26)
[2019-12-07] MEDS: INSULIN ASPART 100 UNITS/ML 3 ML PEN SC SCH ×4 (08:27→21:52)
--- NOTE | 2019-12-07 12:39 | Hospitalist Progress Note ---
Date of Service December 07, 2019 Assessment & Plan (1) Thrombocytopenia: Ddx includes ITP vs. MDS or AML. Peripheral smear did not have blasts initially (per Dr. Vital), but did on repeat smear on 12/03. This could be a proliferative disorder vs. just the steroid taking effect. - Gave 2 units platelets for his bloody BM on 12/03. - Retested platelets 2 hours after transfusion completed. 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 - Finished 4 days of dexamethasone on 12/05. Should respond by 1-2 weeks. - Oncology following - Appreciate recs - If major GI bleeding, will need IVIg. Today (12/06), had another bloody BM. Will check hemoglobin this afternoon and give additional IV iron. So far, no vital sign changes to indicate massive bleed. (2) Pancytopenia: Patient has new onset pancytopenia with significant thrombocytopenia. Likely a combination of factors with some level of poor bone marrow response and ITP for the platelets. - Oncology discussing bone marrow biopsy. Timing dependent on platelets. Likely as an outpatient. - Monitor (3) Bright red blood per rectum: Morning of 12/03 had an episode of BRBPR. Hemoglobin largely stable and vitals stable. Likely due to low platelets. From his report, it is some bleeding after passing a non-bloody BM, then continues to bleed while wiping himself. - No major bleeding after 12/03. Got 1 unit of PRBCs on 12/04 and a dose of IV iron on 12/05. - Improved on 12/06 to 8.7. Will get another dose of IV iron today. (4) Diabetes mellitus: A1c was 8.1% this admission. - Continue long-acting insulin & sliding scale - Glycemic pharmacist managing - Overall in good control in the last 24 hours. (5) HTN (hypertension): BP is 125/55 today. - Continue amlodipine (6) DVT prophylaxis: SCDs - High bleeding risk with thrombocytopenia. Admission and Anticipated Discharge Date Admission Date: December 03, 2019 Subjective Still feels tired and fatigued. No more bloody BMs yesterday, but then had one this morning with blood. Slightly bloody nose. Reports no fevers/chills, chest pain, shortness of breath, abdominal pain, nausea, or vomiting. Physical Exam Constitutional: WD/WN, vitals as above Eyes: EOM intact bilaterally; no conjunctival abnormality ENMT: external ear and nose normal, oropharynx normal Neck: trachea midline, no thyromegaly normal visual inspection Respiratory: normal respiratory effort, lungs clear to auscultation no respiratory distress Cardiovascular: RRR, no murmur, no edema Gastrointestinal (Abdomen): Inspection/Auscultation: abdomen normal to inspection; abdomen not distended Musculoskeletal: no cyanosis or clubbing, extremities motor strength 5/5 Skin: no rashes, warm and dry Neurologic: moves all extremities and awake Psychiatric: Orientation: alert, oriented to person and cooperative Results & Data ([facility]) Vital Signs (Past 12 Hours) Vital Signs Temp Pulse Pulse Resp BP Pulse Ox 12/07/19 11:32 37.4 C 81 18 124/56 L 94 12/07/19 07:50 72 12/07/19 07:29 36.9 C 110 H 18 117/61 92 12/07/19 03:00 36.6 C 82 18 127/77 94 PG Care Time/CCT Total # of Minutes Spent Total Time Spent with Patient: Total time spent is greater than 50% in coordination of care (as documented) at patient's floor/unit and/or counseling patient: Coding Level of Care Code 13488 Subseq Hosp Care Lvl 3 Diagnoses Thrombocytopenia D69.6 Pancytopenia D61.818 Bright red blood per rectum K62.5 Diabetes mellitus E11.9 HTN (hypertension) I10 DVT prophylaxis Z29.9
[2019-12-07] MEDS ORDERED: IRON SUCROSE 100 MG in 0.9 % SODIUM CHLORIDE 100 ML IV ONE (13:00)
--- NOTE | 2019-12-07 13:13 | Hematology/Oncology Prog Note ---
Date of Service December 07, 2019 Assessment & Plan (1) Thrombocytopenia: His platelet count remains low. 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 He has finished his course of steroids, so we should hopefully see an augment in his platelet count soon. His rectal bleeding continues to sound hemorrhoidal and has been self-limited both times it's happened. I spoke with Dr. Cota, his hospitalist. We will check a hemoglobin later today. If it fell, we will initiate treatment with IVIG as described before. If his hemoglobin is stable, we can continue to observe him until his platelets start to rise. His other cell lines are improving. I still remain concerned that he has an underlying bone marrow process, but for now I think it is prudent to wait on a bone marrow biopsy until his platelets are higher. Present on Admission?: Yes Subjective Mr. Gustafson feels well today. He has no headaches or vision changes and denies any bleeding from his nose or mouth. He had to strain to pass stool this morning and passed what he describes as a significant amount of blood. He has not had any additional bleeding. He has no pain and is otherwise comfortable. Review of Systems Review of Systems: All systems reviewed & are unremarkable except as noted in HPI & below Physical Exam Constitutional: comfortable; no acute distress and not ill appearing ENMT: external ear and nose normal, oropharynx normal Respiratory: normal respiratory effort, lungs clear to auscultation Cardiovascular: RRR, no murmur, no edema Gastrointestinal (Abdomen): Inspection/Auscultation: normal bowel sounds; abdomen not distended Percussion/Palpation: abdomen soft; abdomen nontender Skin: + rash (scattered petechiae in a variety of locations, none confluent); no ecchymosis Psychiatric: A+Ox3, euthymic affect Lymphatic: no cervical or axillary lymphadenopathy Results & Data Vital Signs (Past 12 Hours) Vital Signs Temp Pulse Pulse Resp BP Pulse Ox 12/07/19 11:32 37.4 C 81 18 124/56 L 94 12/07/19 07:50 72 12/07/19 07:29 36.9 C 110 H 18 117/61 92 12/07/19 03:00 36.6 C 82 18 127/77 94 Laboratory Results Abnormal lab results 12/06/19 12/06/19 12/06/19 Range/Units 16:45 20:10 20:11 WBC (4.8-10.8) K/uL RBC (4.7-6.1) M/uL Hgb (14.0-18.0) g/dL Hct (42-52) % Plt Count (130-400) K/uL Absolute Nucleated RBC (0-0) K/uL Chloride (98-107) mmol/L BUN (7-18) mg/dl BUN/Creatinine Ratio (-20) Glucose (70-99) mg/dl POC Glucose 274 H 309 H* 311 H* (70-99) mg/dl 12/07/19 12/07/19 12/07/19 Range/Units 00:08 05:33 05:33 WBC 3.78 L (4.8-10.8) K/uL RBC 2.88 L (4.7-6.1) M/uL Hgb 8.7 L (14.0-18.0) g/dL Hct 24.7 L (42-52) % Plt Count 2 L* (130-400) K/uL Absolute Nucleated RBC 0.04 H (0-0) K/uL Chloride 109 H (98-107) mmol/L BUN 34 H (7-18) mg/dl BUN/Creatinine Ratio 30.8 H (10-20) Glucose 153 H (70-99) mg/dl POC Glucose 219 H (70-99) mg/dl 12/07/19 12/07/19 Range/Units 07:44 11:40 WBC (4.8-10.8) K/uL RBC (4.7-6.1) M/uL Hgb (14.0-18.0) g/dL Hct (42-52) % Plt Count (130-400) K/uL Absolute Nucleated RBC (0-0) K/uL Chloride (98-107) mmol/L BUN (7-18) mg/dl BUN/Creatinine Ratio (10-20) Glucose (70-99) mg/dl POC Glucose 173 H 274 H (70-99) mg/dl
--- NOTE | 2019-12-07 13:32 | Pharmacy Report ---
Pharmacy Glycemic Short Note 2 - Date of Service December 07, 2019 - Glycemic Short BSG Results (Last 24 hours): 12/06/19 12/06/19 12/06/19 16:45 20:10 20:11 Glucose POC Glucose 274 H 309 H* 311 H* 12/07/19 12/07/19 12/07/19 00:08 05:33 07:44 Glucose 153 H POC Glucose 219 H 173 H 12/07/19 11:40 Glucose POC Glucose 274 H ASSESSMENT: 12/06: * Steroids completed, last dose yesterday AM. * Fasting blood sugar 153mg/dl, continue Lantus. * Blood sugar amber from 153 to 274mg/dl from breakfast to lunch, will tighten CF/CR. * No other changes at this time as steroid effects should be wearing off today. 12/05: * Patient received total of 139 units of insulin yesterday, of which 56 were basal insulin * BSGs continue to improve, however still >200 * Increase NPH this morning to 35 units to help with dexamethasone effects - continues on dexamethasone 40 mg daily today is last day of current steroid dosing Will follow up with provider to determine plan with steroids after * Tighten CR to 3.5 this morning 12/04: * Patient received total of 176 units of insulin yesterday, of which 51 were basal insulin * Fasting BSG this AM remains elevated at 218 mg/dL - however improving from yesterday * Plan to continue same home Lantus dose, but increase NPH to help cover dexamethasone by ~20% * Plan to tighten CR slightly this morning PLAN FOR INPATIENT GLYCEMIC CONTROL: * Hold outpatient oral diabetes medications * Basal insulin * Lantus 26 daily * DC NPH * Bolus insulin - tighten * NovoLog per scale ACHS or Q6hrs while NPO * Goal Range: Low 110 mg/dL - High 140 mg/dL * TIGHTEN: Correction Factor: 8 mg/dL/unit * TIGHTEN: Nutritional / Prandial insulin per carb ratio of 1 unit per 2.5 grams CHO consumed PLAN FOR DISCHARGE: * to be determined - if plan is to discharge on steroids/outpatient regimen may need adjusted
[2019-12-07] MEDS ORDERED: NORMOSOL-R 500 ML IV ONE (19:01)
[2019-12-07 21:12] LABS: Hematocrit (blood only) 22.9 % (42-52); Hemoglobin 8.1 g/dL (14.0-18.0); Mean Corpuscular Hgb Conc 35.4 g/dL (32-36); Mean Corpuscular Volume 87.7 fL (80-100); Nucleated RBC # (auto) 0.08 K/uL (0-0); Nucleated RBC % (auto) 1.5 %; Platelet Count 3 K/uL (130-400); Platelet Estimate SIGNIFIC DECREASED (Normal); RDW Coefficient of Variation 13.9 % (11.5-14.5); RDW Standard Deviation 44.5 fL (36.4-46.3); Red Blood Count 2.61 M/uL (4.7-6.1); White Blood Count 5.33 K/uL (4.8-10.8)
[2019-12-07] MEDS: IMMUNE GLOBULIN(HUMAN) 10% 200 ML IV SCH (21:28)
[2019-12-07] MEDS: MONTELUKAST SODIUM 10 MG TABLET PO SCH (21:51)
[2019-12-07] MEDS: AMLODIPINE BESYLATE 5 MG TAB PO SCH (21:51)
[2019-12-08] MEDS: IMMUNE GLOBULIN(HUMAN) 10% 200 ML IV SCH ×4 (00:28→23:01)
[2019-12-08] MEDS: ACETAMINOPHEN 325 MG TAB PO PRN ×2 (03:36→19:26)
[2019-12-08 06:18] LABS: INR 1.5 (0.9-1.1); Prothrombin Time 15.4 Seconds (9.0-12.0)
[2019-12-08 06:57] LABS: Creatinine Clr Calc Pharmacy 48.6 ml/min; Est GFR (African American) 52.6; Est GFR (Non-African American) 45.4
[2019-12-08 06:58] LABS: Hematocrit (blood only) 19.6 % (42-52); Hemoglobin 6.8 g/dL (14.0-18.0); Mean Corpuscular Hemoglobin 30.8 pg (25-34); Mean Corpuscular Hgb Conc 34.7 g/dL (32-36); Mean Corpuscular Volume 88.7 fL (80-100); Nucleated RBC % (auto) 1.3 %; Platelet Count 3 K/uL (130-400); RDW Standard Deviation 45.1 fL (36.4-46.3); Red Blood Count 2.21 M/uL (4.7-6.1); White Blood Count 8.03 K/uL (4.8-10.8)
[2019-12-08] MEDS ORDERED: SODIUM CHLORIDE 0.9% 250 ML IV PRN (07:15)
[2019-12-08] MEDS: INSULIN ASPART 100 UNITS/ML 3 ML PEN SC SCH ×4 (08:29→21:18)
[2019-12-08] MEDS: OXYBUTYNIN CHLORIDE 5 MG TAB PO SCH (08:30)
[2019-12-08] MEDS: PRAVASTATIN SOD 40 MG TAB PO SCH (08:30)
[2019-12-08] MEDS ORDERED: INSULIN GLARGINE SOLOSTAR 100 UNITS/ML 3 ML PEN SC SCH (09:00)
--- NOTE | 2019-12-08 10:07 | Pharmacy Report ---
Pharmacy Glycemic Short Note 2 - Date of Service December 08, 2019 - Glycemic Short BSG Results (Last 24 hours): 12/07/19 12/07/19 12/07/19 11:40 16:21 20:37 Glucose POC Glucose 274 H 274 H 210 H 12/08/19 12/08/19 05:01 07:31 Glucose 221 H POC Glucose 243 H ASSESSMENT: 12/07: * Blood sugars 153-274mg/dl over past 24 hours, patient received 100 units of insulin, 26 units basal * Fasting blood sugar today 243mg/dl - increase basal * Tighten CR further for elevated blood sugars, despite discontinuation of steroids (last dose 12/05 AM) 12/06: * Steroids completed, last dose yesterday AM. * Fasting blood sugar 153mg/dl, continue Lantus. * Blood sugar amber from 153 to 274mg/dl from breakfast to lunch, will tighten CF/CR. * No other changes at this time as steroid effects should be wearing off today. 12/05: * Patient received total of 139 units of insulin yesterday, of which 56 were basal insulin * BSGs continue to improve, however still >200 * Increase NPH this morning to 35 units to help with dexamethasone effects - continues on dexamethasone 40 mg daily today is last day of current steroid dosing Will follow up with provider to determine plan with steroids after * Tighten CR to 3.5 this morning 12/04: * Patient received total of 176 units of insulin yesterday, of which 51 were basal insulin * Fasting BSG this AM remains elevated at 218 mg/dL - however improving from yesterday * Plan to continue same home Lantus dose, but increase NPH to help cover dexamethasone by ~20% * Plan to tighten CR slightly this morning PLAN FOR INPATIENT GLYCEMIC CONTROL: * Hold outpatient oral diabetes medications * Basal insulin * INCREASE: Lantus 36 units SQ daily * Bolus insulin - tighten * NovoLog per scale ACHS or Q6hrs while NPO * Goal Range: Low 110 mg/dL - High 140 mg/dL * Correction Factor: 8 mg/dL/unit * TIGHTEN: Nutritional / Prandial insulin per carb ratio of 1 unit per 2 grams CHO consumed PLAN FOR DISCHARGE: * to be determined
--- NOTE | 2019-12-08 10:24 | Hematology/Oncology Prog Note ---
Date of Service December 08, 2019 Assessment & Plan (1) Thrombocytopenia: His platelet count remains low. 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 He has finished his course of steroids, so we should hopefully see an augment in his platelet count soon. He has now had three episodes of rectal bleeding. As a result, we decided to give him the IVIG late yesterday. His hemoglobin is down a bit this morning, which may reflect the blood loss from his stool yesterday. He also got a platelet transfusion and is scheduled for an RBC infusion today. We should recheck his counts later this morning or early this afternoon. It might be reas onable to consider some scans as well. He feels mildly short of breath and, while that could be from the anemia, I would want to make sure he has no other acute issues. His abdomen was soft and non-tender, making it unlikely he has intraperitoneal blood. His WBCs have continued to rise. This makes me wonder if he is developing an infection, particularly in light of the mild SOB. I still remain concerned that he has an underlying bone marrow process, but for now I think it is prudent to wait on a bone marrow biopsy until his platelets are higher. Present on Admission?: Yes Subjective Mr. Gustafson had another bloody bowel movement yesterday. The amount was not witnessed. As a result, we gave him a dose of IVIG late yesterday. He also received a platelet transfusion. He is feeling tired today and a little short of breath. He denied any abdominal pain or nausea. He denied any obvious bleeding anywhere. He denied any headaches, cough, or chest heaviness. He actually felt his vision was a little better today. Review of Systems Review of Systems: All systems reviewed & are unremarkable except as noted in HPI & below Physical Exam Constitutional: comfortable; no acute distress and not ill appearing ENMT: external ear and nose normal, oropharynx normal Respiratory: normal respiratory effort, lungs clear to auscultation Cardiovascular: RRR, no murmur, no edema Gastrointestinal (Abdomen): Inspection/Auscultation: normal bowel sounds; abdomen not distended Percussion/Palpation: abdomen soft; abdomen nontender Skin: + rash (scattered petechiae in a variety of locations, none confluent); no ecchymosis Psychiatric: A+Ox3, euthymic affect Lymphatic: no cervical or axillary lymphadenopathy Results & Data Vital Signs (Past 12 Hours) Vital Signs Temp Pulse Pulse Pulse Resp BP BP 12/08/19 10:09 36.7 C 80 18 135/62 12/08/19 09:51 36.8 C 92 H 18 128/61 12/08/19 09:28 36.7 C 68 18 129/64 12/08/19 08:58 36.7 C 93 H 16 125/57 L 12/08/19 08:43 37.7 C H 93 H 16 128/66 12/08/19 08:26 37.4 C 93 H 16 123/64 12/08/19 07:15 37.6 C H 95 H 22 12/08/19 05:43 37.4 C 12/08/19 00:00 38.0 C H 96 H 109 H 22 113/61 12/07/19 23:03 37.1 C 97 H 96 H 146/52 H BP Pulse Ox 12/08/19 10:09 90 12/08/19 09:51 92 12/08/19 09:28 92 12/08/19 08:58 92 12/08/19 08:43 95 12/08/19 08:26 91 12/08/19 07:15 117/63 12/08/19 05:43 12/08/19 00:00 93 12/07/19 23:03 96 Laboratory Results Abnormal lab results 12/07/19 12/07/19 12/07/19 Range/Units 11:40 14:54 16:21 RBC (4.7-6.1) M/uL Hgb 8.3 L (14.0-18.0) g/dL Hct (42-52) % Plt Count (130-400) K/uL Absolute Nucleated RBC (0-0) K/uL PT (9.0-12.0) Seconds INR (0.9-1.1) Sodium (136-145) mmol/L BUN (7-18) mg/dl Creatinine (0.6-1.4) mg/dl BUN/Creatinine Ratio (10-20) Glucose (70-99) mg/dl POC Glucose 274 H 274 H (70-99) mg/dl Calcium (8.5-10.1) mg/dl Crossmatch 12/07/19 12/07/19 12/08/19 Range/Units 20:03 20:37 05:01 RBC 2.61 L (4.7-6.1) M/uL Hgb 8.1 L (14.0-18.0) g/dL Hct 22.9 L (42-52) % Plt Count 3 L* (130-400) K/uL Absolute Nucleated RBC 0.08 H (0-0) K/uL PT 15.4 H (9.0-12.0) Seconds INR 1.5 H (0.9-1.1) Sodium (136-145) mmol/L BUN (7-18) mg/dl Creatinine (0.6-1.4) mg/dl BUN/Creatinine Ratio (10-20) Glucose (70-99) mg/dl POC Glucose 210 H (70-99) mg/dl Calcium (8.5-10.1) mg/dl Crossmatch 12/08/19 12/08/19 12/08/19 Range/Units 05:01 06:25 07:28 RBC 2.21 L (4.7-6.1) M/uL Hgb 6.8 L* (14.0-18.0) g/dL Hct 19.6 L* (42-52) % Plt Count 3 L* (130-400) K/uL Absolute Nucleated RBC 0.10 H (0-0) K/uL PT (9.0-12.0) Seconds INR (0.9-1.1) Sodium 134 L (136-145) mmol/L BUN 37 H (7-18) mg/dl Creatinine 1.46 H D (0.6-1.4) mg/dl BUN/Creatinine Ratio 25.0 H (10-20) Glucose 221 H (70-99) mg/dl POC Glucose (70-99) mg/dl Calcium 8.0 L (8.5-10.1) mg/dl Crossmatch See Detail 12/08/19 Range/Units 07:31 RBC (4.7-6.1) M/uL Hgb (14.0-18.0) g/dL Hct (42-52) % Plt Count (130-400) K/uL Absolute Nucleated RBC (0-0) K/uL PT (9.0-12.0) Seconds INR (0.9-1.1) Sodium (136-145) mmol/L BUN (7-18) mg/dl Creatinine (0.6-1.4) mg/dl BUN/Creatinine Ratio (10-20) Glucose (70-99) mg/dl POC Glucose 243 H (70-99) mg/dl Calcium (8.5-10.1) mg/dl Crossmatch
[2019-12-08] MEDS ORDERED: INSULIN GLARGINE SOLOSTAR 100 UNITS/ML 3 ML PEN SC ONE (12:15)
--- NOTE | 2019-12-08 12:28 | CT Scan Report ---
CT chest wo con, CT abd pelvis wo con CT DOSE: 1789.81 mGy.cm CLINICAL HISTORY: 78 years-old Male with Shortness of breath. History of malignant melanoma. Acute sh ortness of breath with acute generalized abdominal pain and anemia TECHNIQUE: Multiaxial CT images of the chest, abdomen and pelvis were performed without contrast. A dose lowering technique was utilized adhering to the principles of ALARA. COMPARISON: Chest CT 10/04/2007, CT abdomen and pelvis 07/27/2010 FINDINGS: CT CHEST: Limited exam without the use of IV contrast. Unremarkable thyroid. The study is also limited secondar y to respiratory motion. Mildly enlarged subcarinal lymph node with normal fatty hilum, 1.9 x 1.5 cm. Prominent paratracheal lymph nodes measure up to 9 mm. Moderate cardiomegaly without pericardial eff usion. Extensive coronary artery calcifications. No thoracic aortic aneurysm. Extensive calcified veronica que of the thoracic aorta. Trace right and small left pleural effusions. No pneumothorax. Limited evaluation of the lung parench yma secondary to respiratory motion artifact. Minimal dependent consolidation suggests compressive at electasis. No overt pulmonary edema. Calcified granuloma of the right upper lobe. 9 x 7 mm nodular op acity of the anterior segment right upper lobe, image 105 series 4 with 4 mm solid nodule of the ante rior segment right upper lobe, image 114 series 4 both of which appear to be new from the 2007 exam. Central airways appear patent. Soft tissues are unremarkable. Lucent lesion with stippled central are as of sclerosis involving the manubrium is unchanged suggestive of a hemangioma measuring up to 3.6 x 4.4 cm. Additional several vertebral body hemangiomata also noted. CT ABDOMEN/PELVIS: Motion degraded exam. There is no pneumatosis or pneumoperitoneum. Spleen is enlarged measuring up to 18.7 cm, new from the 2010 exam. Unremarkable appearance of the pancreas and adrenal glands. Mild ga llbladder distention. No definite cholelithiasis, wall thickening or biliary ductal dilation. Liver i s also unremarkable. Mild nonspecific bilateral perinephric stranding. 3.0 x 1.8 cm hypodense lesion of the inferior pole left kidney previously measured up to 2.3 cm and is suggestive of an exophytic cyst. No renal or uret eral calculi or obstructive uropathy. Mild wall thickening of the bladder. Prostamegaly with brachyth erapy seeds. Dense calcifications of the vas deferens. Extensive calcified plaque of the abdominal ao rta and branch vessels. Pelvic sidewall surgical clips are suggestive of prior jaison dissection. Chandrika tional clips of the left inguinal tissues are also present. Mild perisplenic ascites is noted in chandrika tion to trace fluid and edema within the presacral distribution and dependent pelvis of unknown etiol ogy. No bowel obstruction. Moderate fecal retention. Colonic diverticulosis without acute diverticulitis. No retroperitoneal hematoma. Normal appendix. No significant bowel wall thickening. Postoperative rena nges of prior ventral abdominal wall herniorrhaphy. Mild generalized body wall edema. Bones appear in tact. No suspicious osseous lesions identified. Lucent osseous changes of the right pubic bone and pu bic body are unchanged from 2010 suggestive of benign etiology. IMPRESSION: 1. Small left and trace right pleural effusions are noted in addition to trace perinephric splenic as cites with trace free fluid and edema within the presacral distribution and dependent pelvis. 2. No bowel obstruction or bowel wall thickening. Normal appendix. 3. Colonic diverticulosis without acute diverticulitis. 4. Moderate fecal retention. 5. Moderate to marked splenomegaly is new from the 2010 exam. 6. Cardiomegaly. 7. There are two new solid nodules of the right upper lobe as above measuring up to 9 x 7 mm. Follow- up guidelines provided below. Please refer to below summary of Fleischner criteria recommendations for follow-up of incidental CT n odules (Claude Tineo, Guidelines for management of small pulmonary nodules detected on CT scans: A sta tement from the Fleischner Society, Radiology 237: [phone].) SOLID NODULES Multiple nodules size: <6 mm * Low risk patients: no routine follow-up * high risk patients: optional CT at 12 months Multiple nodules size: 6-8 mm * Low risk patients: follow-up at 3-6 months, then consider further follow-up at 18-24 months * high risk patients: follow-up at 3-6 months, then at 18-24 months if no change Multiple nodules size: >8 mm * Low risk patients: follow-up at 3-6 months, then consider further follow-up at 18-24 months * high risk patients: follow-up at 3-6 months, then at 18-24 months if no change Note: newly detected indeterminate nodule in persons 35 years of age or older. * Low risk patients: minimal or absent history of smoking and/or other known risk factors * high risk patients: history of smoking or of other known risk factors (e.g. first degree relative with lung cancer, or exposure to asbestos, radon, uranium) * if a nodule up to 8 mm is partly solid or is ground glass further follow-up is required after 24 m onths to exclude possible slow growing adenocarcinoma (MARCO) ACT 112: Negative or not required by law. Electronically signed by: Joe Fish M.D. 12/08/2019 12:26 PM
--- NOTE | 2019-12-08 13:24 | Hospitalist Progress Note ---
Date of Service December 08, 2019 Assessment & Plan (1) Thrombocytopenia: Ddx includes ITP vs. MDS or AML. Peripheral smear did not have blasts initially (per Dr. Vital), but did on repeat smear on 12/03. This could be a proliferative disorder vs. just the steroid taking effect. - Gave 2 units platelets for his bloody BM on 12/03. - Retested platelets 2 hours after transfusion completed. 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 Stool H. pylori pending as it can be a cause of thrombocytopenia. - Finished 4 days of dexamethasone on 12/05. Should respond by 1-2 weeks. - Oncology following - Appreciate recs - On 12/06, had another bloody BM. Given IVIg 80g x 1 on 12/07. - On 12/07, hgb down to 6.9. Given 1 unit PRBCs and 1 unit platelets (they will stay in his system for an hour or two, so some mild benefit). CT c/a/p on 12/07 showed no other internal bleeding. - Overarching plan for him is that his platelets should start to rebound tomorrow or possibly Monday. He can be discharged when his platelets start to rise, hgb stays steady, and strength gets a bit better. Putting in PT/OT today as he is more tired and generally getting weaker in the hospital. (2) Pancytopenia: Patient has new onset pancytopenia with significant thrombocytopenia. Likely a combination of factors with some level of poor bone marrow response and ITP for the platelets. - Oncology discussing bone marrow biopsy. Timing dependent on platelets. Likely as an outpatient. - Monitor (3) Bright red blood per rectum: Multiple episodes of BRBPR with last one on 12/06. Likely from diverticular bleed as CT a/p on 12/07 shows diverticular disease. Likely worsened due to low platelets. - Got 1 unit of PRBCs on 12/04 & 1 on 12/07 and doses of IV iron on 12/05 & 12/06. - Hgb down to 6.8 on 12/07 -> Up to 8.3 after 1 unit of PRBCs. (4) CHIDI (acute kidney injury): Baseline Cr. ~1.1, eGFR 65 (i.e. CKD Stage 2). - Cr. up to 1.46 on 12/07 - Likely pre-renal due to blood loss. He got 500 mL IV fluids on 12/06 and a unit of PRBCs and platelets on 12/07. - Will give gentle IV fluids; want to be careful not to cause volume overload as he has some mild swelling now due to all the blood products. - Monitor (5) Coagulation defect: INR was 1.3 on admission and rechecked on 12/07 it was 1.5. Possibly due to malnutrition as he has not been eating a ton here and has had a low appetite for several months. - Will give vitamin K 10 mg PO x 1 today. - Recheck INR tomorrow (6) Diabetes mellitus: A1c was 8.1% this admission. - Continue long-acting insulin & sliding scale - Glycemic pharmacist managing - Overall in 175-285 range in last 24 hours. (7) HTN (hypertension): BP is 145/85 today. - Held amlodipine on 12/06 due to softer BPs in the setting of another bloody BM (8) DVT prophylaxis: SCDs - High bleeding risk with thrombocytopenia. Admission and Anticipated Discharge Date Admission Date: December 03, 2019 Subjective Tired today, but feeling a little better. No further BMs. Reports no fevers/chills, chest pain, shortness of breath, abdominal pain, nausea, or vomiting. Physical Exam Constitutional: WD/WN, vitals as above Eyes: EOM intact bilaterally; no conjunctival abnormality ENMT: external ear and nose normal, oropharynx normal Neck: trachea midline, no thyromegaly normal visual inspection Respiratory: normal respiratory effort, lungs clear to auscultation no respiratory distress Cardiovascular: RRR, no murmur, no edema Gastrointestinal (Abdomen): Inspection/Auscultation: abdomen normal to inspection; abdomen not distended Percussion/Palpation: abdomen soft; abdomen nontender Musculoskeletal: no cyanosis or clubbing, extremities motor strength 5/5 Skin: no rashes, warm and dry Neurologic: moves all extremities and awake Psychiatric: Orientation: alert, oriented to person and cooperative Results & Data ([facility]) Vital Signs (Past 12 Hours) Vital Signs Temp Pulse Pulse Resp BP BP Pulse Ox 12/08/19 12:10 36.8 C 85 20 143/82 H 92 12/08/19 11:14 36.8 C 87 20 143/60 H 92 12/08/19 10:44 36.8 C 88 18 124/53 L 97 12/08/19 10:29 36.7 C 80 18 110/54 L 93 12/08/19 10:09 36.7 C 80 18 135/62 90 12/08/19 09:51 36.8 C 92 H 18 128/61 92 12/08/19 09:28 36.7 C 68 18 129/64 92 12/08/19 08:58 36.7 C 93 H 16 125/57 L 92 12/08/19 08:43 37.7 C H 93 H 16 128/66 95 12/08/19 08:26 37.4 C 93 H 16 123/64 91 12/08/19 07:15 37.6 C H 95 H 22 117/63 12/08/19 05:43 37.4 C PG Care Time/CCT Total # of Minutes Spent Total Time Spent with Patient: Total time spent is greater than 50% in coordination of care (as documented) at patient's floor/unit and/or counseling patient: Coding Level of Care Code 08623 Subseq Hosp Care Lvl 3 Diagnoses Thrombocytopenia D69.6 Pancytopenia D61.818 Bright red blood per rectum K62.5 CHIDI (acute kidney injury) N17.9 Coagulation defect D68.9 Diabetes mellitus E11.9 HTN (hypertension) I10 DVT prophylaxis Z29.9
[2019-12-08 14:42] LABS: Hematocrit (blood only) 23.9 % (42-52); Hemoglobin 8.3 g/dL (14.0-18.0); Mean Corpuscular Hgb Conc 34.7 g/dL (32-36); Mean Corpuscular Volume 86.3 fL (80-100); Nucleated RBC # (auto) 0.08 K/uL (0-0); Nucleated RBC % (auto) 1.2 %; Platelet Count 3 K/uL (130-400); RDW Coefficient of Variation 14.3 % (11.5-14.5); RDW Standard Deviation 45.3 fL (36.4-46.3); Red Blood Count 2.77 M/uL (4.7-6.1)
[2019-12-08 14:49] LABS: ALC (manual) 1.95 K/uL (1.2-3.4); ANC (manual) 3.45 K/uL (1.4-6.5); Blast # (manual) 0.65 K/uL (0-0); Eosinophils # (manual) 0.39 K/uL (0-0.5); Lymphocytes # (manual) 1.95 K/uL (1.2-3.4); Monocytes # (manual) 0.07 K/uL (0.11-0.59); Neutrophils # (manual) 3.45 K/uL (1.4-6.5)
[2019-12-08] MEDS ORDERED: NORMOSOL-R 500 ML IV ONE (15:01)
[2019-12-08] MEDS: PHYTONADIONE 5 MG TAB PO SCH (16:09)
--- NOTE | 2019-12-08 18:26 | Electrocardiogram Report ---
Test Reason : Blood Pressure : / mmHG Vent. Rate : 101 BPM Atrial Rate : 101 BPM P-R Int : 138 ms QRS Dur : 090 ms QT Int : 338 ms P-R-T Axes : 083 -17 113 degrees QTc Int : 438 ms Sinus tachycardia with Premature atrial complexes , some consecutive Abnormal ECG When compared with ECG of 04-DEC-2019 15:12, Premature atrial complexes are now Present Vent. rate has increased BY 39 BPM T wave inversion less evident in Anterolateral leads Confirmed by Kayden Menon ([id number]) on 12/08/2019 6:25:40 PM Referred By: REFERRED SELF Confirmed By:Abraham Menon
[2019-12-08 19:35] LABS: Hemoglobin 7.7 g/dL (14.0-18.0); Mean Corpuscular Hemoglobin 30.6 pg (25-34); Mean Corpuscular Volume 87.3 fL (80-100); Nucleated RBC # (auto) 0.07 K/uL (0-0); Nucleated RBC % (auto) 0.9 %; Platelet Count 2 K/uL (130-400); Platelet Estimate SIGNIFIC DECREASED (Normal); RDW Coefficient of Variation 14.4 % (11.5-14.5); RDW Standard Deviation 46.1 fL (36.4-46.3); Red Blood Count 2.52 M/uL (4.7-6.1); White Blood Count 7.69 K/uL (4.8-10.8)
[2019-12-08 20:15] LABS: Influenza A virus by PCR Neg for Influ A (Neg); Influenza B virus by PCR Neg for Influ B (Neg)
[2019-12-08] MEDS: MONTELUKAST SODIUM 10 MG TABLET PO SCH (21:21)
[2019-12-08] MEDS ORDERED: [UNRECOGNIZED DRUG - OTHER] IV SCH (21:30)
[2019-12-08 23:02] LABS: Albumin Level 2.2 gm/dl (3.4-5.0); BUN Creatinine Ratio 27.1 (10-20); Calcium 7.8 mg/dl (8.5-10.1); Creatinine Clr Calc Pharmacy 53.4 ml/min; Est GFR (African American) 58.9; Est GFR (Non-African American) 50.8; Potassium 4.5 mmol/L (3.5-5.1)
[2019-12-08 23:05] LABS: Albumin Globulin Ratio 0.6 (0.9-2); Bilirubin,Total 1.1 mg/dl (0.2-1); Globulin 3.7 gm/dl (2.5-4.0); Total Protein 5.9 gm/dl (6.4-8.2)
[2019-12-08 23:15] LABS: Appearance Urine Clear (Clear); Bacteria Urine Automated Negative (Negative); Blood Urine Negative (Negative); Color Urine Dark Yellow; Glucose Urine UA Negative (Negative); Ketones Urine Negative (Negative); Leukocyte Esterase Urine Negative (Negative); Nitrite Urine Negative (Negative); Protein Urine Trace (Negative); RBC Urine Automated 0-4 /hpf (0-4); Specific Gravity Urine 1.023 (1.000-1.030); Urobilinogen Urine Negative (Negative)
[2019-12-08 23:48] LABS: Bilirubin Urine Negative (Negative); Ictotest Urine Negative (Negative)
[2019-12-09] LABS: Fibrinogen 362 mg/dl (184-400)
[2019-12-09] MEDS: IMMUNE GLOBULIN(HUMAN) 10% 200 ML IV SCH ×6 (00:52→11:05)
[2019-12-09] MEDS: INSULIN ASPART 100 UNITS/ML 3 ML PEN SC SCH ×3 (01:15→08:11)
[2019-12-09] MEDS: ACETAMINOPHEN 325 MG TAB PO PRN (04:33)
[2019-12-09] MEDS ORDERED: FUROSEMIDE 40 MG in SYRINGE 0 ML IV ONE ×2 (04:53→11:00)
[2019-12-09 06:53] LABS: INR 1.8 (0.9-1.1); Prothrombin Time 18.8 Seconds (9.0-12.0)
[2019-12-09 07:01] LABS: Hematocrit (blood only) 22.2 % (42-52); Hemoglobin 7.7 g/dL (14.0-18.0); Mean Corpuscular Hemoglobin 29.8 pg (25-34); Mean Corpuscular Hgb Conc 34.7 g/dL (32-36); Nucleated RBC # (auto) 0.08 K/uL (0-0); Nucleated RBC % (auto) 0.8 %; Platelet Count 3 K/uL (130-400); RDW Coefficient of Variation 14.5 % (11.5-14.5); RDW Standard Deviation 46.1 fL (36.4-46.3); Red Blood Count 2.58 M/uL (4.7-6.1); White Blood Count 9.45 K/uL (4.8-10.8)
--- NOTE | 2019-12-09 07:02 | XRay Report ---
XR chest 1V portable HISTORY: Shortness of breath. COMPARISON: Chest 12/03/2019. FINDINGS: No pneumothorax. Trace bilateral pleural effusions. Myocardial megaly persists. There is mi ld pulmonary vascular congestion without overt edema. No new focal lung consolidations to suggest pne umonia. IMPRESSION: Cardiomegaly with mild central pulmonary vascular congestion without overt edema. ACT 112: Negative or not required by law. Electronically signed by: Orlando Naranjo M.D. 12/09/2019 7:01 AM
[2019-12-09 07:14] LABS: BUN Creatinine Ratio 25.5 (10-20); Calcium 7.5 mg/dl (8.5-10.1); Creatinine Clr Calc Pharmacy 49.3 ml/min; Est GFR (African American) 53.1; Est GFR (Non-African American) 45.8; Magnesium 1.7 mg/dl (1.8-2.4); Platelet Estimate SIGNIFIC DECREASED (Normal)
[2019-12-09 07:18] LABS: Albumin Globulin Ratio 0.4 (0.9-2); Bilirubin,Total 1.1 mg/dl (0.2-1); Globulin 4.9 gm/dl (2.5-4.0); Phosphorus 2.8 mg/dl (2.5-4.9); Total Protein 6.9 gm/dl (6.4-8.2)
[2019-12-09] MEDS ORDERED: IMMUNE GLOBULIN IV ONE (07:50)
[2019-12-09] MEDS: PRAVASTATIN SOD 40 MG TAB PO SCH (08:09)
[2019-12-09] MEDS: OXYBUTYNIN CHLORIDE 5 MG TAB PO SCH (08:09)
[2019-12-09] MEDS: PHYTONADIONE 5 MG TAB PO SCH (08:10)
--- NOTE | 2019-12-09 08:45 | Discharge Summary ---
Date of Service December 09, 2019 Admission HPI Per Admitting Provider This is a 70-year-old male with past medical history of idiopathic anaphylaxis, diabetes mellitus, hypertension, and macular degeneration who presents today with abnormal lab work. Patient is coming by his and is very good historian. Patient tells me that over the past 2 months he is noticed that he has been getting slowly weaker. He tells me his generalized weakness well focality. He is sleeping through much of the day and feels that he can sleep 24 hours if given the chance. His appetite has been getting more poor and he eats little now although he can tolerate without nausea or vomiting. He is lost 10-12 pounds since beginning of the year. His bowel movements are mostly normal although he will occasionally have a little bright red blood which is painless. More recently has noticed some mild dyspnea on exertion which is been slowly worsening. He has had no fevers or chills, changes in his urine, or chest pain. Earlier today the patient went to his primary care physician because he felt t hat he was getting worse. Patient had routine lab work drawn and was called several hours later and told to present to the emergency room. Glucose is CBC was grossly normal with a platelet count of 3. Patient is now in the emergency room, labs were confirmed and he is now being admitted for pancytopenia. At this time, patient has no acute complaints outside of his general fatigue as described above. He is in no acute cardiopulmonary distress. He has no active bleeding. 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 Discharge Exam Constitutional WD/WN, vitals as above + ill appearing; no acute distress Eyes + anicteric sclerae ENMT external ear and nose normal, oropharynx normal Neck trachea midline, no thyromegaly Respiratory normal respiratory effort Auscultation: + diminished lung sounds (at bases) Cardiovascular Rate/Rhythm: regular rhythm and + tachycardic Heart Sounds: no murmur Extremities: + edema (1+ edema legs bilat) Chest (Breasts) Chest: normal inspection of chest Gastrointestinal (Abdomen) normal bowel sounds, soft, nontender, no hepatosplenomegaly Musculoskeletal Extremities: no cyanosis and no clubbing Skin + rash (petechiae diffusely) Neurologic moves all extremities and awake; no focal motor deficits Psychiatric Orientation: alert, oriented to person, oriented to place, oriented to time and cooperative Affect: + flat affect Lymphatic no lymphedema Discharge Data Allergies Allergy/AdvReac Type Severity Reaction Status Date / Time Sulfa (Sulfonamide Allergy Severe HIVES Verified 12/03/19 17:21 Antibiotics) povidone-iodine Allergy Mild burning Verified 12/03/19 17:21 sensation Consultations 12/03/19 17:32 ED Decision to Admit Stat 12/03/19 21:01 Consult Hematology Routine Ordered Studies 12/04/19 17:31 US abdomen limited Routine 12/08/19 10:46 CT abd pelvis wo con Urgent CT chest wo con Urgent CXR 12/09/19 12/09/19 12/09/19 Range/Units 08:42 08:42 07:54 WBC (4.8-10.8) K/uL RBC (4.7-6.1) M/uL Hgb (14.0-18.0) g/dL Hct (42-52) % MCV (80-100) fL MCH (25-34) pg MCHC (32-36) g/dL RDW Std Deviation (36.4-46.3) fL RDW Coeff of [place]vira (11.5-14.5) % Plt Count (130-400) K/uL MPV (7.4-10.4) fL Absolute Nucleated RBC (0-0) K/uL Nucleated RBC % (auto) % Neutrophils % (Manual) % Lymphocytes % (Manual) % Monocytes % (Manual) % Eosinophils % (Manual) % Blast Cells % (Manual) % Neutrophils # (Manual) (1.4-6.5) K/uL Total Absolute Neuts (1.4-6.5) K/uL Lymphocytes # (Manual) (1.2-3.4) K/uL Total Abs Lymphocytes (1.2-3.4) K/uL Monocytes # (Manual) (0.11-0.59) K/uL Eosinophils # (Manual) (0-0.5) K/uL Blast Cells # (Man) (0-0) K/uL Hyposegmented Neuts Platelet Estimate (Normal) Peripher Smr Path Cons Haptoglobin PT (9.0-12.0) Seconds INR (0.9-1.1) Fibrinogen (184-400) mg/dl Sodium (136-145) mmol/L Potassium (3.5-5.1) mmol/L Chloride (98-107) mmol/L Carbon Dioxide (21-32) mmol/L Anion Gap (3-11) BUN (7-18) mg/dl Creatinine (0.6-1.4) mg/dl Est Cr Clr Drug Dosing ml/min Est GFR ( Amer) Est GFR (Non-Af Amer) BUN/Creatinine Ratio (10-20) Glucose (70-99) mg/dl POC Glucose 175 H (70-99) mg/dl Uric Acid Pending Calcium (8.5-10.1) mg/dl Phosphorus (2.5-4.9) mg/dl Magnesium (1.8-2.4) mg/dl Total Bilirubin (0.2-1) mg/dl AST (15-37) U/L ALT (12-78) U/L Alkaline Phosphatase (45-117) U/L Lactate Dehydrogenase Pending (87-241) U/L Total Protein (6.4-8.2) gm/dl Albumin (3.4-5.0) gm/dl Globulin (2.5-4.0) gm/dl Albumin/Globulin Ratio (0.9-2) Procalcitonin (0-0.5) ng/ml Urine Color Urine Appearance (Clear) Urine pH (4.5-7.5) Ur Specific [place] (1.000-1.030) Urine Protein (Negative) Urine Glucose (UA) (Negative) Urine Ketones (Negative) Urine Blood (Negative) Urine Nitrite (Negative) Urine Bilirubin (Negative) Urine Urobilinogen (Negative) Ur Leukocyte Esterase (Negative) Urine WBC (Auto) (0-5) /hpf Urine RBC (Auto) (0-4) /hpf U Hyaline Cast (Auto) (0-5) /lpf U Epithel Cells (Auto) (0-5) /lpf Urine Bacteria (Auto) (Negative) Nasal Screen MRSA (PCR) (Negative) Influenza Type A (PCR) (Neg) Influenza Type B (PCR) (Neg) Blood Type Antibody Screen Crossmatch 12/09/19 12/09/19 12/09/19 Range/Units 06:15 06:15 06:15 WBC 9.45 (4.8-10.8) K/uL RBC 2.58 L (4.7-6.1) M/uL Hgb 7.7 L (14.0-18.0) g/dL Hct 22.2 L (42-52) % MCV 86.0 (80-100) fL MCH 29.8 (25-34) pg MCHC 34.7 (32-36) g/dL RDW Std Deviation 46.1 (36.4-46.3) fL RDW Coeff of Elvira 14.5 (11.5-14.5) % Plt Count 3 L* (130-400) K/uL MPV (7.4-10.4) fL Absolute Nucleated RBC 0.08 H (0-0) K/uL Nucleated RBC % (auto) 0.8 % Neutrophils % (Manual) % Lymphocytes % (Manual) % Monocytes % (Manual) % Eosinophils % (Manual) % Blast Cells % (Manual) % Neutrophils # (Manual) (1.4-6.5) K/uL Total Absolute Neuts (1.4-6.5) K/uL Lymphocytes # (Manual) (1.2-3.4) K/uL Total Abs Lymphocytes (1.2-3.4) K/uL Monocytes # (Manual) (0.11-0.59) K/uL Eosinophils # (Manual) (0-0.5) K/uL Blast Cells # (Man) (0-0) K/uL Hyposegmented Neuts Platelet Estimate SIGNIFIC DECREASED (Normal) Peripher Smr Path Cons Haptoglobin PT 18.8 H (9.0-12.0) Seconds INR 1.8 H (0.9-1.1) Fibrinogen (184-400) mg/dl Sodium 135 L (136-145) mmol/L Potassium 4.0 (3.5-5.1) mmol/L Chloride 105 (98-107) mmol/L Carbon Dioxide 23 (21-32) mmol/L Anion Gap 7.0 (3-11) BUN 37 H (7-18) mg/dl Creatinine 1.45 H (0.6-1.4) mg/dl Est Cr Clr Drug Dosing 49.3 ml/min Est GFR ( Amer) 53.1 Est GFR (Non-Af Amer) 45.8 BUN/Creatinine Ratio 25.5 H (10-20) Glucose 157 H (70-99) mg/dl POC Glucose (70-99) mg/dl Uric Acid Calcium 7.5 L (8.5-10.1) mg/dl Phosphorus 2.8 (2.5-4.9) mg/dl Magnesium 1.7 L (1.8-2.4) mg/dl Total Bilirubin 1.1 H (0.2-1) mg/dl AST 31 (15-37) U/L ALT 10 L (12-78) U/L Alkaline Phosphatase 81 (45-117) U/L Lactate Dehydrogenase (87-241) U/L Total Protein 6.9 (6.4-8.2) gm/dl Albumin 2.0 L (3.4-5.0) gm/dl Globulin 4.9 H (2.5-4.0) gm/dl Albumin/Globulin Ratio 0.4 L (0.9-2) Procalcitonin (0-0.5) ng/ml Urine Color Urine Appearance (Clear) Urine pH (4.5-7.5) Ur Specific [place] (1.000-1.030) Urine Protein (Negative) Urine Glucose (UA) (Negative) Urine Ketones (Negative) Urine Blood (Negative) Urine Nitrite (Negative) Urine Bilirubin (Negative) Urine Urobilinogen (Negative) Ur Leukocyte Esterase (Negative) Urine WBC (Auto) (0-5) /hpf Urine RBC (Auto) (0-4) /hpf U Hyaline Cast (Auto) (0-5) /lpf U Epithel Cells (Auto) (0-5) /lpf Urine Bacteria (Auto) (Negative) Nasal Screen MRSA (PCR) (Negative) Influenza Type A (PCR) (Neg) Influenza Type B (PCR) (Neg) Blood Type Antibody Screen Crossmatch 12/09/19 12/09/19 12/08/19 Range/Units 03:58 00:55 22:40 WBC (4.8-10.8) K/uL RBC (4.7-6.1) M/uL Hgb (14.0-18.0) g/dL Hct (42-52) % MCV (80-100) fL MCH (25-34) pg MCHC (32-36) g/dL RDW Std Deviation (36.4-46.3) fL RDW Coeff of Elvira (11.5-14.5) % Plt Count (130-400) K/uL MPV (7.4-10.4) fL Absolute Nucleated RBC (0-0) K/uL Nucleated RBC % (auto) % Neutrophils % (Manual) % Lymphocytes % (Manual) % Monocytes % (Manual) % Eosinophils % (Manual) % Blast Cells % (Manual) % Neutrophils # (Manual) (1.4-6.5) K/uL Total Absolute Neuts (1.4-6.5) K/uL Lymphocytes # (Manual) (1.2-3.4) K/uL Total Abs Lymphocytes (1.2-3.4) K/uL Monocytes # (Manual) (0.11-0.59) K/uL Eosinophils # (Manual) (0-0.5) K/uL Blast Cells # (Man) (0-0) K/uL Hyposegmented Neuts Platelet Estimate (Normal) Peripher Smr Path Cons Haptoglobin PT (9.0-12.0) Seconds INR (0.9-1.1) Fibrinogen (184-400) mg/dl Sodium (136-145) mmol/L Potassium (3.5-5.1) mmol/L Chloride (98-107) mmol/L Carbon Dioxide (21-32) mmol/L Anion Gap (3-11) BUN (7-18) mg/dl Creatinine (0.6-1.4) mg/dl Est Cr Clr Drug Dosing ml/min Est GFR ( Amer) Est GFR (Non-Af Amer) BUN/Creatinine Ratio (10-20) Glucose (70-99) mg/dl POC Glucose 196 H 198 H (70-99) mg/dl Uric Acid Calcium (8.5-10.1) mg/dl Phosphorus (2.5-4.9) mg/dl Magnesium (1.8-2.4) mg/dl Total Bilirubin (0.2-1) mg/dl AST (15-37) U/L ALT (12-78) U/L Alkaline Phosphatase (45-117) U/L Lactate Dehydrogenase (87-241) U/L Total Protein (6.4-8.2) gm/dl Albumin (3.4-5.0) gm/dl Globulin (2.5-4.0) gm/dl Albumin/Globulin Ratio (0.9-2) Procalcitonin (0-0.5) ng/ml Urine Color Dark Yellow Urine Appearance Clear (Clear) Urine pH 5.0 (4.5-7.5) Ur Specific [place] 1.023 (1.000-1.030) Urine Protein Trace H (Negative) Urine Glucose (UA) Negative (Negative) Urine Ketones Negative (Negative) Urine Blood Negative (Negative) Urine Nitrite Negative (Negative) Urine Bilirubin Negative (Negative) Urine Urobilinogen Negative (Negative) Ur Leukocyte Esterase Negative (Negative) Urine WBC (Auto) 1-5 (0-5) /hpf Urine RBC (Auto) 0-4 (0-4) /hpf U Hyaline Cast (Auto) 5-10 H (0-5) /lpf U Epithel Cells (Auto) 10-20 H (0-5) /lpf Urine Bacteria (Auto) Negative (Negative) Nasal Screen MRSA (PCR) (Negative) Influenza Type A (PCR) (Neg) Influenza Type B (PCR) (Neg) Blood Type Antibody Screen Crossmatch 12/08/19 12/08/19 12/08/19 Range/Units 22:24 22:24 22:24 WBC (4.8-10.8) K/uL RBC (4.7-6.1) M/uL Hgb (14.0-18.0) g/dL Hct (42-52) % MCV (80-100) fL MCH (25-34) pg MCHC (32-36) g/dL RDW Std Deviation (36.4-46.3) fL RDW Coeff of Elvira (11.5-14.5) % Plt Count (130-400) K/uL MPV (7.4-10.4) fL Absolute Nucleated RBC (0-0) K/uL Nucleated RBC % (auto) % Neutrophils % (Manual) % Lymphocytes % (Manual) % Monocytes % (Manual) % Eosinophils % (Manual) % Blast Cells % (Manual) % Neutrophils # (Manual) (1.4-6.5) K/uL Total Absolute Neuts (1.4-6.5) K/uL Lymphocytes # (Manual) (1.2-3.4) K/uL Total Abs Lymphocytes (1.2-3.4) K/uL Monocytes # (Manual) (0.11-0.59) K/uL Eosinophils # (Manual) (0-0.5) K/uL Blast Cells # (Man) (0-0) K/uL Hyposegmented Neuts Platelet Estimate (Normal) Peripher Smr Path Cons Haptoglobin Pending PT (9.0-12.0) Seconds INR (0.9-1.1) Fibrinogen (184-400) mg/dl Sodium 137 (136-145) mmol/L Potassium 4.5 (3.5-5.1) mmol/L Chloride 106 (98-107) mmol/L Carbon Dioxide 25 (21-32) mmol/L Anion Gap 7.0 (3-11) BUN 36 H (7-18) mg/dl Creatinine 1.33 (0.6-1.4) mg/dl Est Cr Clr Drug Dosing 53.4 ml/min Est GFR ( Amer) 58.9 Est GFR (Non-Af Amer) 50.8 BUN/Creatinine Ratio 27.1 H (10-20) Glucose 200 H (70-99) mg/dl POC Glucose (70-99) mg/dl Uric Acid Calcium 7.8 L (8.5-10.1) mg/dl Phosphorus (2.5-4.9) mg/dl Magnesium (1.8-2.4) mg/dl Total Bilirubin 1.1 H (0.2-1) mg/dl AST 27 (15-37) U/L ALT 11 L (12-78) U/L Alkaline Phosphatase 77 (45-117) U/L Lactate Dehydrogenase 1526 H (87-241) U/L Total Protein 5.9 L (6.4-8.2) gm/dl Albumin 2.2 L (3.4-5.0) gm/dl Globulin 3.7 (2.5-4.0) gm/dl Albumin/Globulin Ratio 0.6 L (0.9-2) Procalcitonin (0-0.5) ng/ml Urine Color Urine Appearance (Clear) Urine pH (4.5-7.5) Ur Specific [place] (1.000-1.030) Urine Protein (Negative) Urine Glucose (UA) (Negative) Urine Ketones (Negative) Urine Blood (Negative) Urine Nitrite (Negative) Urine Bilirubin (Negative) Urine Urobilinogen (Negative) Ur Leukocyte Esterase (Negative) Urine WBC (Auto) (0-5) /hpf Urine RBC (Auto) (0-4) /hpf U Hyaline Cast (Auto) (0-5) /lpf U Epithel Cells (Auto) (0-5) /lpf Urine Bacteria (Auto) (Negative) Nasal Screen MRSA (PCR) (Negative) Influenza Type A (PCR) (Neg) Influenza Type B (PCR) (Neg) Blood Type Antibody Screen Crossmatch 12/08/19 12/08/19 12/08/19 Range/Units 22:24 21:30 20:24 WBC (4.8-10.8) K/uL RBC (4.7-6.1) M/uL Hgb (14.0-18.0) g/dL Hct (42-52) % MCV (80-100) fL MCH (25-34) pg MCHC (32-36) g/dL RDW Std Deviation (36.4-46.3) fL RDW Coeff of Elvira (11.5-14.5) % Plt Count (130-400) K/uL MPV (7.4-10.4) fL Absolute Nucleated RBC (0-0) K/uL Nucleated RBC % (auto) % Neutrophils % (Manual) % Lymphocytes % (Manual) % Monocytes % (Manual) % Eosinophils % (Manual) % Blast Cells % (Manual) % Neutrophils # (Manual) (1.4-6.5) K/uL Total Absolute Neuts (1.4-6.5) K/uL Lymphocytes # (Manual) (1.2-3.4) K/uL Total Abs Lymphocytes (1.2-3.4) K/uL Monocytes # (Manual) (0.11-0.59) K/uL Eosinophils # (Manual) (0-0.5) K/uL Blast Cells # (Man) (0-0) K/uL Hyposegmented Neuts Platelet Estimate (Normal) Peripher Smr Path Cons Haptoglobin PT (9.0-12.0) Seconds INR (0.9-1.1) Fibrinogen 362 (184-400) mg/dl Sodium (136-145) mmol/L Potassium (3.5-5.1) mmol/L Chloride (98-107) mmol/L Carbon Dioxide (21-32) mmol/L Anion Gap (3-11) BUN (7-18) mg/dl Creatinine (0.6-1.4) mg/dl Est Cr Clr Drug Dosing ml/min Est GFR ( Amer) Est GFR (Non-Af Amer) BUN/Creatinine Ratio (10-20) Glucose (70-99) mg/dl POC Glucose 228 H (70-99) mg/dl Uric Acid Calcium (8.5-10.1) mg/dl Phosphorus (2.5-4.9) mg/dl Magnesium (1.8-2.4) mg/dl Total Bilirubin (0.2-1) mg/dl AST (15-37) U/L ALT (12-78) U/L Alkaline Phosphatase (45-117) U/L Lactate Dehydrogenase (87-241) U/L Total Protein (6.4-8.2) gm/dl Albumin (3.4-5.0) gm/dl Globulin (2.5-4.0) gm/dl Albumin/Globulin Ratio (0.9-2) Procalcitonin (0-0.5) ng/ml Urine Color Urine Appearance (Clear) Urine pH (4.5-7.5) Ur Specific [place] (1.000-1.030) Urine Protein (Negative) Urine Glucose (UA) (Negative) Urine Ketones (Negative) Urine Blood (Negative) Urine Nitrite (Negative) Urine Bilirubin (Negative) Urine Urobilinogen (Negative) Ur Leukocyte Esterase (Negative) Urine WBC (Auto) (0-5) /hpf Urine RBC (Auto) (0-4) /hpf U Hyaline Cast (Auto) (0-5) /lpf U Epithel Cells (Auto) (0-5) /lpf Urine Bacteria (Auto) (Negative) Nasal Screen MRSA (PCR) Negative (Negative) Influenza Type A (PCR) (Neg) Influenza Type B (PCR) (Neg) Blood Type Antibody Screen Crossmatch 12/08/19 12/08/19 12/08/19 Range/Units 19:30 18:55 18:55 WBC 7.69 (4.8-10.8) K/uL RBC 2.52 L (4.7-6.1) M/uL Hgb 7.7 L (14.0-18.0) g/dL Hct 22.0 L (42-52) % MCV 87.3 (80-100) fL MCH 30.6 (25-34) pg MCHC 35.0 (32-36) g/dL RDW Std Deviation 46.1 (36.4-46.3) fL RDW Coeff of [place] 14.4 (11.5-14.5) % Plt Count 2 L* (130-400) K/uL MPV (7.4-10.4) fL Absolute Nucleated RBC 0.07 H (0-0) K/uL Nucleated RBC % (auto) 0.9 % Neutrophils % (Manual) % Lymphocytes % (Manual) % Monocytes % (Manual) % Eosinophils % (Manual) % Blast Cells % (Manual) % Neutrophils # (Manual) (1.4-6.5) K/uL Total Absolute Neuts (1.4-6.5) K/uL Lymphocytes # (Manual) (1.2-3.4) K/uL Total Abs Lymphocytes (1.2-3.4) K/uL Monocytes # (Manual) (0.11-0.59) K/uL Eosinophils # (Manual) (0-0.5) K/uL Blast Cells # (Man) (0-0) K/uL Hyposegmented Neuts Platelet Estimate SIGNIFIC DECREASED (Normal) Peripher Smr Path Cons Haptoglobin PT (9.0-12.0) Seconds INR (0.9-1.1) Fibrinogen (184-400) mg/dl Sodium (136-145) mmol/L Potassium (3.5-5.1) mmol/L Chloride (98-107) mmol/L Carbon Dioxide (21-32) mmol/L Anion Gap (3-11) BUN (7-18) mg/dl Creatinine (0.6-1.4) mg/dl Est Cr Clr Drug Dosing ml/min Est GFR ( Amer) Est GFR (Non-Af Amer) BUN/Creatinine Ratio (10-20) Glucose (70-99) mg/dl POC Glucose (70-99) mg/dl Uric Acid Calcium (8.5-10.1) mg/dl Phosphorus (2.5-4.9) mg/dl Magnesium (1.8-2.4) mg/dl Total Bilirubin (0.2-1) mg/dl AST (15-37) U/L ALT (12-78) U/L Alkaline Phosphatase (45-117) U/L Lactate Dehydrogenase (87-241) U/L Total Protein (6.4-8.2) gm/dl Albumin (3.4-5.0) gm/dl Globulin (2.5-4.0) gm/dl Albumin/Globulin Ratio (0.9-2) Procalcitonin 4.73 H (0-0.5) ng/ml Urine Color Urine Appearance (Clear) Urine pH (4.5-7.5) Ur Specific [place] (1.000-1.030) Urine Protein (Negative) Urine Glucose (UA) (Negative) Urine Ketones (Negative) Urine Blood (Negative) Urine Nitrite (Negative) Urine Bilirubin (Negative) Urine Urobilinogen (Negative) Ur Leukocyte Esterase (Negative) Urine WBC (Auto) (0-5) /hpf Urine RBC (Auto) (0-4) /hpf U Hyaline Cast (Auto) (0-5) /lpf U Epithel Cells (Auto) (0-5) /lpf Urine Bacteria (Auto) (Negative) Nasal Screen MRSA (PCR) (Negative) Influenza Type A (PCR) Neg for Influ A (Neg) Influenza Type B (PCR) Neg for Influ B (Neg) Blood Type Antibody Screen Crossmatch 12/08/19 12/08/19 12/08/19 Range/Units 16:28 14:05 11:33 WBC 6.50 (4.8-10.8) K/uL RBC 2.77 L (4.7-6.1) M/uL Hgb 8.3 L (14.0-18.0) g/dL Hct 23.9 L (42-52) % MCV 86.3 (80-100) fL MCH 30.0 (25-34) pg MCHC 34.7 (32-36) g/dL RDW Std Deviation 45.3 (36.4-46.3) fL RDW Coeff of [place] 14.3 (11.5-14.5) % Plt Count 3 L* (130-400) K/uL MPV 0.0 L D (7.4-10.4) fL Absolute Nucleated RBC 0.08 H (0-0) K/uL Nucleated RBC % (auto) 1.2 % Neutrophils % (Manual) 53.0 % Lymphocytes % (Manual) 30.0 % Monocytes % (Manual) 1.0 % Eosinophils % (Manual) 6.0 % Blast Cells % (Manual) 10.0 % Neutrophils # (Manual) 3.45 (1.4-6.5) K/uL Total Absolute Neuts 3.45 (1.4-6.5) K/uL Lymphocytes # (Manual) 1.95 (1.2-3.4) K/uL Total Abs Lymphocytes 1.95 (1.2-3.4) K/uL Monocytes # (Manual) 0.07 L (0.11-0.59) K/uL Eosinophils # (Manual) 0.39 (0-0.5) K/uL Blast Cells # (Man) 0.65 H (0-0) K/uL Hyposegmented Neuts 2+ Platelet Estimate (Normal) Peripher Smr Path Cons Haptoglobin PT (9.0-12.0) Seconds INR (0.9-1.1) Fibrinogen (184-400) mg/dl Sodium (136-145) mmol/L Potassium (3.5-5.1) mmol/L Chloride (98-107) mmol/L Carbon Dioxide (21-32) mmol/L Anion Gap (3-11) BUN (7-18) mg/dl Creatinine (0.6-1.4) mg/dl Est Cr Clr Drug Dosing ml/min Est GFR ( Amer) Est GFR (Non-Af Amer) BUN/Creatinine Ratio (10-20) Glucose (70-99) mg/dl POC Glucose 205 H 285 H (70-99) mg/dl Uric Acid Calcium (8.5-10.1) mg/dl Phosphorus (2.5-4.9) mg/dl Magnesium (1.8-2.4) mg/dl Total Bilirubin (0.2-1) mg/dl AST (15-37) U/L ALT (12-78) U/L Alkaline Phosphatase (45-117) U/L Lactate Dehydrogenase (87-241) U/L Total Protein (6.4-8.2) gm/dl Albumin (3.4-5.0) gm/dl Globulin (2.5-4.0) gm/dl Albumin/Globulin Ratio (0.9-2) Procalcitonin (0-0.5) ng/ml Urine Color Urine Appearance (Clear) Urine pH (4.5-7.5) Ur Specific [place] (1.000-1.030) Urine Protein (Negative) Urine Glucose (UA) (Negative) Urine Ketones (Negative) Urine Blood (Negative) Urine Nitrite (Negative) Urine Bilirubin (Negative) Urine Urobilinogen (Negative) Ur Leukocyte Esterase (Negative) Urine WBC (Auto) (0-5) /hpf Urine RBC (Auto) (0-4) /hpf U Hyaline Cast (Auto) (0-5) /lpf U Epithel Cells (Auto) (0-5) /lpf Urine Bacteria (Auto) (Negative) Nasal Screen MRSA (PCR) (Negative) Influenza Type A (PCR) (Neg) Influenza Type B (PCR) (Neg) Blood Type Antibody Screen Crossmatch 12/08/19 Range/Units 07:28 WBC (4.8-10.8) K/uL RBC (4.7-6.1) M/uL Hgb (14.0-18.0) g/dL Hct (42-52) % MCV (80-100) fL MCH (25-34) pg MCHC (32-36) g/dL RDW Std Deviation (36.4-46.3) fL RDW Coeff of [place]vira (11.5-14.5) % Plt Count (130-400) K/uL MPV (7.4-10.4) fL Absolute Nucleated RBC (0-0) K/uL Nucleated RBC % (auto) % Neutrophils % (Manual) % Lymphocytes % (Manual) % Monocytes % (Manual) % Eosinophils % (Manual) % Blast Cells % (Manual) % Neutrophils # (Manual) (1.4-6.5) K/uL Total Absolute Neuts (1.4-6.5) K/uL Lymphocytes # (Manual) (1.2-3.4) K/uL Total Abs Lymphocytes (1.2-3.4) K/uL Monocytes # (Manual) (0.11-0.59) K/uL Eosinophils # (Manual) (0-0.5) K/uL Blast Cells # (Man) (0-0) K/uL Hyposegmented Neuts Platelet Estimate (Normal) Peripher Smr Path Cons Haptoglobin PT (9.0-12.0) Seconds INR (0.9-1.1) Fibrinogen (184-400) mg/dl Sodium (136-145) mmol/L Potassium (3.5-5.1) mmol/L Chloride (98-107) mmol/L Carbon Dioxide (21-32) mmol/L Anion Gap (3-11) BUN (7-18) mg/dl Creatinine (0.6-1.4) mg/dl Est Cr Clr Drug Dosing ml/min Est GFR ( Amer) Est GFR (Non-Af Amer) BUN/Creatinine Ratio (10-20) Glucose (70-99) mg/dl POC Glucose (70-99) mg/dl Uric Acid Calcium (8.5-10.1) mg/dl Phosphorus (2.5-4.9) mg/dl Magnesium (1.8-2.4) mg/dl Total Bilirubin (0.2-1) mg/dl AST (15-37) U/L ALT (12-78) U/L Alkaline Phosphatase (45-117) U/L Lactate Dehydrogenase (87-241) U/L Total Protein (6.4-8.2) gm/dl Albumin (3.4-5.0) gm/dl Globulin (2.5-4.0) gm/dl Albumin/Globulin Ratio (0.9-2) Procalcitonin (0-0.5) ng/ml Urine Color Urine Appearance (Clear) Urine pH (4.5-7.5) Ur Specific [place] (1.000-1.030) Urine Protein (Negative) Urine Glucose (UA) (Negative) Urine Ketones (Negative) Urine Blood (Negative) Urine Nitrite (Negative) Urine Bilirubin (Negative) Urine Urobilinogen (Negative) Ur Leukocyte Esterase (Negative) Urine WBC (Auto) (0-5) /hpf Urine RBC (Auto) (0-4) /hpf U Hyaline Cast (Auto) (0-5) /lpf U Epithel Cells (Auto) (0-5) /lpf Urine Bacteria (Auto) (Negative) Nasal Screen MRSA (PCR) (Negative) Influenza Type A (PCR) (Neg) Influenza Type B (PCR) (Neg) Blood Type O Positive Antibody Screen NEGATIVE Crossmatch See Detail Hospital Course (1) Thrombocytopenia: Ddx includes ITP vs. MDS or AML. Peripheral smear did not have blasts initially (per Dr. Vital), but did on repeat smear on 12/03 and now at 10% blasts on 12/07 smear. This could be a proliferative disorder vs. just the steroid taking effect. Platelets consistently remain at 3k despite IVIG, steroids, and transfusion Hgb ranges from 6.8-8 despite transfusion with 2 uints PRBCs and has had some rectal bleeding - Gave 2 units platelets for his bloody BM on 12/03. - Retested platelets 2 hours after transfusion completed. 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 Stool H. pylori pending as it can be a cause of thrombocytopenia. - Finished 4 days of dexamethasone on 12/05. Should respond by 1-2 weeks. No response yet - Oncology following - Appreciate recs - On 12/06, had another bloody BM. Given IVIg 80g x 1 on 12/07. - On 12/07, hgb down to 6.9. Given 1 unit PRBCs and [address] c/a/p on 12/07 showed splenomegaly, pulm nodules Bone marrow aspirate/bx not performed yet due to waiting to see if responds to therapies noted above and because of low plt count as per Oncology Hgb and plts not responding to transfusional support, IVIG, and high dose steroids. More blasts now on peripheral smear. With intermittent low grade fevers, no source of infection found----> highly concerning for AML vs MDS with excess blasts. Discussed case with Oncology both here and at [facility] and he has been accepted in transfer to [place] by Dr. Jane. APpreciate assistance -[facility] Oncology recommended ok to give another dose of IVIG now prior to transfer and possible IV lasix along with it as developed some hypoxia. Also wants TLA labs--> added on Uric acid and LDH to this AM's labs (2) Pancytopenia: Patient has new onset pancytopenia with significant thrombocytopenia. As above Possible AML or MDS -transfer to [facility] (3) Bright red blood per rectum: Multiple episodes of BRBPR with last one on 12/06. Likely from diverticular bleed as CT a/p on 12/07 shows diverticular disease. Likely worsened due to low platelets. - Got 1 unit of PRBCs on 12/04 & 1 on 12/07 and doses of IV iron on 12/05 & 12/06. - Hgb down to 6.8 on 12/07 -> Up to 8.3 after 1 unit of PRBCs. Now 7.7 on day of discharge with no further bleeding -follow CBC Transfusional support as needed (4) CHIDI (acute kidney injury): Baseline Cr. ~1.1, eGFR 65 (i.e. CKD Stage 2). - Cr. up to 1.46 on 12/07 then back down and now up again to 1.45 on 12/08 - Likely pre-renal due to blood loss. He got 500 mL IV fluids on 12/06 and a unit of PRBCs and platelets on 12/07. - received gentle IVFs but then was hypoxic and volume overloaded--> received IV lasix x 1 dose on AM of 12/08 -follow BMP -follow urine output (5) Coagulation defect: INR was 1.3 on admission and rechecked on 12/08 it was 1.8 despite receiving Vit K po. Possibly due to malnutrition as he has not been eating a ton here and has had a low appetite for several months. - possible DIC? -follow no need for further po vit K (6) Diabetes mellitus: A1c was 8.1% this admission. - Continue long-acting insulin & sliding scale - Glycemic pharmacist managing - Overall in 175-285 range in last 24 hours. (7) HTN (hypertension): BPs acceptable - Held amlodipine on 12/06 due to softer BPs in the setting of another bloody BM Now BPs stable -continue to hold amlodipine for now (8) Fever: With temps 38 at times UA negative, no evidence of infection in CT chest/abd/pel. PCT elevated at 4 but nonspecific in setting of possible heme malignancy Flu swab negative No other infectious symptoms likely due to leukemia (9) DVT prophylaxis: SCDs - High bleeding risk with thrombocytopenia. 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, MDS Rectal bleeding Hypoxia Condition on Discharge: Serious Activity: As commented below Lifting: None Bathing: No limitations Exercise/Sports: Rest today Non-emergency contact: Primary Care Provider Call non-emergency contact if: you have any medication questions and your symptoms worsen Follow-up/Referrals: Ruben Felder [Primary Care Provider] - Diet: Regular Addtl Attending Provider Instructions: Transferred to [facility] Pending Studies at Discharge: Yes Studies:: Haptoglobin Uric acid, LDH Stand-Alone Forms: My [facility] Skilled Items Patient informed of condition?: Yes DNR: No Discharge Level of Care: Other Communicable Disease: No Discharge Prognosis: Deteriorating Lines: Peripheral IV Urinary Catheter: No Medications and DC Order Prescriptions: New Lantus Solostar U-100 Insulin 100 unit/mL (3 mL) Insulin Pen 35 unit SC QAM Qty: 3 RF: 0 Continued montelukast 10 mg tablet 10 mg PO QPM Qty: 90 RF: 3 cetirizine 10 mg tablet 5 mg PO DAILY PRN (Reason: Allergy Symptoms) RF: 0 furosemide 40 mg tablet 40 mg PO DAILY PRN (Reason: swelling) RF: 0 multivitamin [Multiple Vitamins] tablet 1 tab PO DAILY RF: 0 oxybutynin chloride 5 mg tablet 5 mg PO QAM RF: 0 PreserVision AREDS [id number],[id number] capsule 1 cap PO BID RF: 0 vitamin B complex [B Complex-Vitamin B12] tablet 1 tab PO QAM RF: 0 pravastatin 40 mg tablet 40 mg PO QAM RF: 0 fluconazole 150 mg tablet 150 mg PO MONTHLY RF: 0 potassium chloride 20 mEq Tablet Extended Release 20 meq PO QPM RF: 0 Discontinued amlodipine 5 mg tablet 5 mg PO QPM RF: 0 glimepiride 4 mg tablet 4 mg PO QAM RF: 0 metformin 1,000 mg tablet 1,000 mg PO BID RF: 0 Lantus U-100 Insulin 100 unit/mL solution 26 unit SUBCUT QAM RF: 0 Discharge Orders: Discharge Order (Routine); Ordered 12/09/19 Ordered By: Lashonda Farmer Admission Data Admit Date/Time: 12/03/19 19:21 Attending Provider: Lashonda Farmer Admit Provider: Rick Bettencourt Primary Care Provider: Ruben Felder Other Providers: Lane Cota ; Rick Bettencourt ; Cortes Vital Coding Level of Care Code D/C Day Management >30 mins Diagnoses Thrombocytopenia D69.6 Pancytopenia D61.818 Bright red blood per rectum K62.5 CHIDI (acute kidney injury) N17.9 Coagulation defect D68.9 Diabetes mellitus E11.9 HTN (hypertension) I10 Fever R50.9 DVT prophylaxis Z29.9
--- NOTE | 2019-12-09 08:47 | Pharmacy Report ---
Pharmacy Glycemic Short Note 2 - Date of Service December 09, 2019 - Glycemic Short BSG Results (Last 24 hours): 12/08/19 12/08/19 12/08/19 11:33 16:28 20:24 Glucose POC Glucose 285 H 205 H 228 H 12/08/19 12/09/19 12/09/19 22:24 00:55 03:58 Glucose 200 H POC Glucose 198 H 196 H 12/09/19 12/09/19 06:15 07:54 Glucose 157 H POC Glucose 175 H ASSESSMENT: 12/09/19: * BSGs ranging 198-285 mg/dL over past 24 hours, patient received 51 units basal and 70 units bolus * BSGs yesterday may still have been effected by dexamethasone which usually lasts approximately 48 hours * Expecting patient to have increased insulin sensitivity as dexamethasone effects wear off today * AM fasting BSG improved, 157 mg/dL, will decrease Lantus dose this AM and loosen CF and CR PLAN FOR INPATIENT GLYCEMIC CONTROL: * Hold outpatient oral diabetes medications * Basal insulin * DECREASE: Lantus 35 units SQ daily * Bolus insulin * NovoLog per scale ACHS or Q6hrs while NPO * Goal Range: Low 110 mg/dL - High 140 mg/dL * LOOSEN: Correction Factor: 10 mg/dL/unit * LOOSEN: Nutritional / Prandial insulin per carb ratio of 1 unit per 3 grams CHO consumed PLAN FOR DISCHARGE: * to be determined
[2019-12-09] MEDS ORDERED: IMMUNE GLOBULIN(HUMAN) 10% 100 ML IV SCH (09:00)
[2019-12-09] MEDS ORDERED: INSULIN GLARGINE SOLOSTAR 100 UNITS/ML 3 ML PEN SC SCH ×2 (09:00)
--- NOTE | 2019-12-09 09:47 | Progress Notes ---
DATE: 12/09/2019 HEMATOLOGY PROGRESS NOTE DIAGNOSES: 1. 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 2. Pancytopenia with circulating blasts. 3. Bright red blood per rectum. 4. Acute renal injury. SUBJECTIVE: Mr. Gustafson is a pleasant but unfortunate 78-year-old gentleman who has been with us at [facility] for about a week now with a slowly declining peripheral blood counts, specifically severe thrombocytopenia. Dr. Vital had been managing him last week; I believe there may be a component of ITP transiently intermixed platelet transfusion with IVIG, with modest intermittent response. However, towards the end of the week, more evidence of circulating blasts emerged. His neutrophil count continues to be relatively robust at 3400 at last check. Clinically, Mr. Gustafson feels he is generally declining. Fortunately, he has not had fever or chills, but overall lethargy seems to be setting in. His coags are definitely somewhat out of kilter; this could indicate he is developing DIC as well. A very complex gentleman and I have recommended the primary service proceed with transfer immediately. OBJECTIVE: GENERAL: A very pleasant 78-year-old gentleman lying supine in no acute distress. VITAL SIGNS: Temperature 36.8, pulse 103, respiratory rate 24, blood pressure 131/64. SKIN: Scattered ecchymoses and petechiae. Otherwise, no overt dermatoses. HEENT: Oral mucosa without erythema or ulceration. HEART: Regular rate and rhythm. LUNGS: Clear to auscultation bilaterally. ABDOMEN: Soft, nontender, nondistended. EXTREMITIES: No clubbing, cyanosis or edema. LABORATORY DATA: WBC count 9450, hemoglobin 7.7, platelet count 3000, and 650 blasts. His PT is 18.8 seconds, INR 1.8. Fibrinogen is holding strong at 362. Creatinine 1.45. Magnesium is slightly decreased to 1.7. Total bilirubin slightly increased, albumin 2.0. IMPRESSION: 1. Thrombocytopenia, maybe a mixture of immune component and infiltrating bone marrow disease such as myelodysplasia or acute myelogenous leukemia. 2. Pancytopenia. 3. Bright red blood per rectum. 4. Acute renal injury. 5. Coagulopathy, possible disseminated intravascular coagulation. PLAN: Unfortunately, this gentleman not by his own fault picked a bad time to develop a hematologic malignancy. At [facility], we do not do induction, and to procure diagnosis expediently, tertiary center is probably the best option moving forward for this gentleman's sake. I took a fair amount of time to explain this to Mr. Gustafson at bedside, and he agrees that transfer is necessary. According to Dr. Vital and the hospitalist taking care of Mr. Gustafson, they have intermixed trying IVIG and transfusional support, all to no avail. Unfortunately, I believe his prognosis is poor, but cannot be definitive without specific diagnosis. I can definitely say he is not making any improvement since his admission. Dr. Farmer had contacted me a little bit ago and apparently [facility] will take Mr. Gusatfson in transfer. Thank you very much for allowing me to participate in his care.
[2019-12-09] MEDS ORDERED: FUROSEMIDE 40 MG/4 ML VIAL IV ONE (11:00)
== END 2019-12-09 11:46 | disposition short-term general hospital (02) | DRG 808 ==
LOC: ED 15:50 → SUATTDRO 19:21 → 2N 19:21 → 2S 12-07 19:16